=== PATIENT | male | born 1960 | race Caucasian/White ===

== ENCOUNTER 2016-03-10 14:17 | Emergency (ER) | payer OTHER ==
--- NOTE | 2016-03-10 15:27 | DIAGNOSTIC IMAGING REPORT ---
PROCEDURE: XR CHEST 2 VIEW INDICATION: CHEST PAIN TECHNIQUE: PA and lateral views. COMPARISON: None. FINDINGS: Lungs are clear. Heart and mediastinum are normal. Thorax is normal. IMPRESSION: 1. Negative chest.
--- NOTE | 2016-03-10 16:57 | DIAGNOSTIC IMAGING REPORT ---
PROCEDURE: CTA THORAX WITH CONTRAST INDICATION: CHEST PAIN, initial encounter TECHNIQUE: 84 ml of Isovue 370 was injected intravenously and axial images were obtained of the entire thorax with 3D sagittal and coronal MIP reconstructions. COMPARISON: Chest x-ray 03/10/2016 FINDINGS: No evidence of pulmonary emboli. Lungs are clear. No adenopathy or effusion. Normal thoracic aorta. Heart size is normal. Visualized upper abdomen is unremarkable. Moderate degenerative changes of the spine. IMPRESSION: 1. No evidence of pulmonary emboli, aortic dissection or aneurysm 2. Results discussed with Dr. Will
--- NOTE | 2016-03-10 17:05 | ED ORDER SUMMARY ---
..... 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 per protocol) (14:30 SBalde R.N.) Oxygen (2 L/min) (NC) (14:30 03/10/2016 SBalde R.N. per protocol) (15:08 Radha R.N.) Pulse oximeter (14:03/10/2016 SBalde R.N. per protocol) (14:30 SBalde R.N.) EKG - ER Stat (14:30 03/10/2016 SBalde R.N. per protocol) (14:33 RKaruga) Cardiac Panel Stat (14:30 03/10/2016 SBalde R.N. per protocol) (Ack 14:37 RKanauga) (14:45 SBalde R.N.) Chest 2V Urgent (14:43 03/10/2016 Brain HOLLEY) (Ack 14:46 Luz) (15:08 Radha R.N.) Amylase Urgent (14:43 03/10/2016 Brain HOLLEY) (Ack 14:46 Luz) (15:08 Radha R.N.) Lipase Urgent (14:43 03/10/2016 Brain HOLLEY) (Ack 14:46 Luz) (15:08 Radha R.N.) D-Dimer Urgent (14:43 03/10/2016 Brain HOLLEY) (Ack 14:46 Luz) (15:08 Radha R.N.) CTA Thorax w Cont (No) (normal) Urgent (15:35 03/10/2016 Brain HOLLEY) (Ack 15:38 Luz) (16:27 DDean R.N.) MEDICATION ORDERS: Aspirin PO 324 mg (NOW) (14:29 03/10/2016 SBalde R.N. per protocol) (14:30 Denaee R.N.) GI Cocktail WHITE PO 50 mL (NOW) (14:43 03/10/2016 Brain HOLLEY) (Ack 15:02 Radha R.N.) (15:08 Radha R.N.) IV FLUIDS: IV Saline Lock (14:30 03/10/2016 MIGUELalde R.N. per protocol) (14:45 Marilyn R.N.) Toradol IV 30 mg (NOW) (15:34 03/10/2016 Brain HOLLEY) (15:49 SBalde R.N.) ORDER SHEET NOTES: [Electronically signed by Shikha Solis R.N. (17:47 03/10/2016)] [Electronically signed by Jose Martin Will MD (20:16 03/10/2016)] [Electronically locked/signed by Shikha Solis R.N. (17:47 03/10/2016)]
--- NOTE | 2016-03-10 17:05 | ED NURSING NOTES ---
Clinical Report - Nurses [facility] [place] [address] 03/10/2016 14:19 [id number] TRI[facility] Triage time 14:21 Mar 10 2016. Acuity: LEVEL 2. Chief Complaint: CHEST PAIN and DISCOMFORT. Alert. No acute distress. --14:26 Sandra Campoverde R.N. 14:21 03/10/16. BP: 105/58. HR: 68. RR: 18. O2 saturation: 96%. Temp: 97.8 F. Pain level now 7/10. --14: Sandra Campoverde R.N. Weight: 111.1 kg stated. Height/Length: 72 inches Per Patient. BMI: 33.2. --14: Sandra Campoverde R.N. Medications CeleXA Oral. LaMICtal Oral (Tablet 150 mg) 250mg , twice daily. --14:23 Sandra Campoverde R.N. ZyPREXA Oral 2.5 mg, daily. --14:23 Sandra Campoverde R.N. Medication/allergy information source: the patient. --14: Sandra Campoverde R.N. Allergies Penicillins. --14: Sandra Campoverde R.N. History Arrived by private vehicle. Historian: patient. Accompanied by family and spouse. Primary physician (Rodney Craig). ( Left Pectoral Chest Pain 7/10, sudden onset, no activity. Was sitting at home waiting to go to work, started having Chest Pain, pain radiated down his left arm. Did not take any OTC at home. Pain is still 7/10 and left arm is still painful.). This started just prior to arrival. No sweating episodes or nausea. 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 SOCIAL HX: Never smoker. No alcohol use or drug use. No infectious disease exposure. FALL RISK ASSESSMENT: Fall risk assessment completed. No fall risk identified. NUTRITIONAL RISK ASSESSMENT: The nutritional risk assessment revealed no deficiencies. FUNCTIONAL ASSESSMENT: Functional assessment: no impairments noted. LEARNING NEEDS ASSESSMENT: The learning needs assessment revealed no barriers. SKIN INTEGRITY ASSESSMENT: Skin integrity risk assessment completed. No skin integrity risk identified. --14:26 Sandra Campoverde R.N. PROBLEMS: Immunizations. Seasonal allergic rhinitis. Asthma. Borderline personality disorder. Depression. Dental Pain. --14:25 Sandra Campoverde R.N. ADDITIONAL SURGERIES: Cholecystectomy. Knee Surgery. Sinus Surgery. --14:25 Sandra Campoverde R.N. Interventions ID band on patient. To room. --14:26 Sandra Campoverde R.N. PHYSICAL ASSESSMENT 15:03. GENERAL / NEURO / PSYCH: The patient is awake and alert, is oriented and cooperative and appears uncomfortable. He has good eye contact. RESPIRATORY: Respirations not labored. CVS: Cardiac rhythm: sinus rhythm. SKIN: Skin is warm and dry. --17:46 Shikha Solis R.N. NURSING PROGRESS NOTES site monitor, pulse oximeter and NIBP monitor placed on patient; ekg monitor tech- Lead II; monitor alarms on. Patient gowned. --14:28 Sandra Campoverde R.N. Patient identifiers checked. Side rails up x 1. Bed placed in lowest position. Brakes of bed on. --14:28 Sandra Campoverde R.N. ( ASA 324 mp chewable given in the ER.). --14:29 Sandra Campoverde R.N. 14:30 03/10/2016 Aspirin PO 324 mg given. Allergies verified and confirmed 5 rights. --14:30 Sandra Campoverde R.N. 14:45 03/10/2016 Site #1 started via IV in the right with an 18g angiocath; one attempt. Blood drawn: rainbow set. Labeled in the presence of the patient. Saline lock flushed with 10 mL saline. --14:45 Sandra Campoverde R.N. 15:03 03/10/2016 GI cocktail * PO 50 ml Maalox 30 ml Viscous Lidocaine 20 ml --15:08 Shikha Solis R.N. 15:11 03/10/16. The patient is resting quietly. Overall patient status is the same- he states feels the same. RESPIRATORY: No respiratory distress. CVS: Cardiac rhythm: sinus rhythm. SKIN: Skin is warm and dry. --15:11 Shikha Solis R.N. 15:08 03/10/16. BP: 113/66. HR: 62. RR: 22. O2 saturation: 98% on nasal cannula at 2 liters/minute. Pain level now: 08/14. --15:11 Shikha Solis R.N. 15:22 03/10/16. BP: 113/66. HR: 59. RR: 18. O2 saturation: 97%. Pain level now 08/14. --15:25 Sandra Campoverde R.N. Reassessment after medication administered (no change after med). He has had no adverse reaction. Overall patient status is the same- he states feels the same. --15:25 Sandra Campoverde R.N. 15:49 03/10/2016 Toradol IVP 30 mg given over 2 minute(s) via site #1. Allergies verified and confirmed 5 rights. IV patency established. IVP given by RN. --15:49 Sandra Campoverde R.N. Patient transported to CT by stretcher with tech. --16:17 Sandra Campoverde R.N. 16:28 03/10/16. Patient returned from CT by stretcher with tech. --16:28 Rachel Kim R.N. Patient returned from CT by stretcher with tech. (16:29 Mar 10 2016). --16:29 Sandra Campoverde R.N. site monitor and pulse oximeter placed on patient; monitor alarms on. --16:30 Sandra Campoverde R.N. 16:29 03/10/16. BP: 121/62. HR: 65. RR: 18. O2 saturation: 100%. Pain level now 06/14. --16:30 Sandra Campoverde R.N. 17:40. Reassessment after procedure and medication administered. He is calm and resting quietly. Overall patient status is improved- he states feels better. RESPIRATORY: No respiratory distress. CVS: Cardiac rhythm: sinus rhythm. SKIN: Skin is warm and dry. --17:45 Shikha Solis R.N. DISPOSITION / DISCHARGE Departure time: 1740. Condition at departure: stable. No learning barriers present. Discharge instructions provided and reviewed with the patient. Reviewed medication(s). Prescription(s) given to the patient. Work note given. Patient verbalized understanding. Written instructions provided in Macedonian. The patient was discharged home and accompanied by adult day care worker. He left the Emergency Department ambulatory and via private vehicle. Review Scheduling Coordinator driving. FALL RISK ASSESSMENT: Fall risk assessment completed. No fall risk identified. --17:44 Shikha Solis R.N. 17:43 03/10/16. BP: 114/62. HR: 60. RR: 20. O2 saturation: 98% on room air. Pain level now: 05/15. --17:44 Shikha Solis R.N. 17:40 03/10/2016 Site #1 removed upon discharge. Catheter intact. Bandaid applied. --17:44 Shikha Solis R.N. Locked/Released at 03/10/2016 17:47 by Shikha Solis R.N.
--- NOTE | 2016-03-10 17:05 | ED NURSING NOTES ---
Clinical Report - Nurses [facility] [place] [address] 03/10/2016 14:19 [id number] TRI[facility] Triage time 14:21 Mar 10 2016. Acuity: LEVEL 2. Chief Complaint: CHEST PAIN and DISCOMFORT. Alert. No acute distress. --14:26 Sandra Campoverde R.N. 14:21 03/10/16. BP: 105/58. HR: 68. RR: 18. O2 saturation: 96%. Temp: 97.8 F. Pain level now 7/10. --14: Sandra Campoverde R.N. Weight: 111.1 kg stated. Height/Length: 72 inches Per Patient. BMI: 33.2. --14: Sandra Campoverde R.N. Medications CeleXA Oral. LaMICtal Oral (Tablet 150 mg) 250mg , twice daily. --14:23 Sandra Campoverde R.N. ZyPREXA Oral 2.5 mg, daily. --14:23 Sandra Campoverde R.N. Medication/allergy information source: the patient. --14: Sandra Campoverde R.N. Allergies Penicillins. --14: Sandra Campoverde R.N. History Arrived by private vehicle. Historian: patient. Accompanied by family and spouse. Primary physician (Rodney Craig). ( Left Pectoral Chest Pain 7/10, sudden onset, no activity. Was sitting at home waiting to go to work, started having Chest Pain, pain radiated down his left arm. Did not take any OTC at home. Pain is still 7/10 and left arm is still painful.). This started just prior to arrival. No sweating episodes or nausea. 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 SOCIAL HX: Never smoker. No alcohol use or drug use. No infectious disease exposure. FALL RISK ASSESSMENT: Fall risk assessment completed. No fall risk identified. NUTRITIONAL RISK ASSESSMENT: The nutritional risk assessment revealed no deficiencies. FUNCTIONAL ASSESSMENT: Functional assessment: no impairments noted. LEARNING NEEDS ASSESSMENT: The learning needs assessment revealed no barriers. SKIN INTEGRITY ASSESSMENT: Skin integrity risk assessment completed. No skin integrity risk identified. --14:26 Sandra Campoverde R.N. PROBLEMS: Immunizations. Seasonal allergic rhinitis. Asthma. Borderline personality disorder. Depression. Dental Pain. --14:25 Sandra Campoverde R.N. ADDITIONAL SURGERIES: Cholecystectomy. Knee Surgery. Sinus Surgery. --14:25 Sandra Campoverde R.N. Interventions ID band on patient. To room. --14:26 Sandra Campoverde R.N. PHYSICAL ASSESSMENT 15:03. GENERAL / NEURO / PSYCH: The patient is awake and alert, is oriented and cooperative and appears uncomfortable. He has good eye contact. RESPIRATORY: Respirations not labored. CVS: Cardiac rhythm: sinus rhythm. SKIN: Skin is warm and dry. --17:46 Shikha Solis R.N. NURSING PROGRESS NOTES outpatient surgery rn, pulse oximeter and NIBP monitor placed on patient; director equipment- Lead II; monitor alarms on. Patient gowned. --14:28 Sandra Campoverde R.N. Patient identifiers checked. Side rails up x 1. Bed placed in lowest position. Brakes of bed on. --14:28 Sandra Campoverde R.N. ( ASA 324 mp chewable given in the ER.). --14:29 Sandra Campoverde R.N. 14:30 03/10/2016 Aspirin PO 324 mg given. Allergies verified and confirmed 5 rights. --14:30 Sandra Campoverde R.N. 14:45 03/10/2016 Site #1 started via IV in the right with an 18g angiocath; one attempt. Blood drawn: rainbow set. Labeled in the presence of the patient. Saline lock flushed with 10 mL saline. --14:45 Sandra Campoverde R.N. 15:03 03/10/2016 GI cocktail * PO 50 ml Maalox 30 ml Viscous Lidocaine 20 ml --15:08 Shikha Solis R.N. 15:11 03/10/16. The patient is resting quietly. Overall patient status is the same- he states feels the same. RESPIRATORY: No respiratory distress. CVS: Cardiac rhythm: sinus rhythm. SKIN: Skin is warm and dry. --15:11 Shikha Solis R.N. 15:08 03/10/16. BP: 113/66. HR: 62. RR: 22. O2 saturation: 98% on nasal cannula at 2 liters/minute. Pain level now: 08/14. --15:11 Shikha Solis R.N. 15:22 03/10/16. BP: 113/66. HR: 59. RR: 18. O2 saturation: 97%. Pain level now 08/14. --15:25 Sandra Campoverde R.N. Reassessment after medication administered (no change after med). He has had no adverse reaction. Overall patient status is the same- he states feels the same. --15:25 Sandra Campoverde R.N. 15:49 03/10/2016 Toradol IVP 30 mg given over 2 minute(s) via site #1. Allergies verified and confirmed 5 rights. IV patency established. IVP given by RN. --15:49 Sandra Campoverde R.N. Patient transported to CT by stretcher with tech. --16:17 Sandra Campoverde R.N. 16:28 03/10/16. Patient returned from CT by stretcher with tech. --16:28 Rachel Kim R.N. Patient returned from CT by stretcher with tech. (16:29 Mar 10 2016). --16:29 Sandra Campoverde R.N. outpatient surgery rn and pulse oximeter placed on patient; monitor alarms on. --16:30 Sandra Campoverde R.N. 16:29 03/10/16. BP: 121/62. HR: 65. RR: 18. O2 saturation: 100%. Pain level now 06/14. --16:30 Sandra Campoverde R.N. 17:40. Reassessment after procedure and medication administered. He is calm and resting quietly. Overall patient status is improved- he states feels better. RESPIRATORY: No respiratory distress. CVS: Cardiac rhythm: sinus rhythm. SKIN: Skin is warm and dry. --17:45 Shikha Solis R.N. DISPOSITION / DISCHARGE Departure time: 1740. Condition at departure: stable. No learning barriers present. Discharge instructions provided and reviewed with the patient. Reviewed medication(s). Prescription(s) given to the patient. Work note given. Patient verbalized understanding. Written instructions provided in [place]. The patient was discharged home and accompanied by cottage parent. He left the Emergency Department ambulatory and via private vehicle. Auto Phone Installer driving. FALL RISK ASSESSMENT: Fall risk assessment completed. No fall risk identified. --17:44 Shikha Solis R.N. 17:43 03/10/16. BP: 114/62. HR: 60. RR: 20. O2 saturation: 98% on room air. Pain level now: 05/15. --17:44 Shikha Solis R.N. 17:40 03/10/2016 Site #1 removed upon discharge. Catheter intact. Bandaid applied. --17:44 Shikha Solis R.N. Locked/Released at 03/10/2016 17:47 by Shikha Solis R.N.
--- NOTE | 2016-03-10 17:05 | ED CLINICAL REPORT ---
Clinical Report - Physicians/Mid Levels [facility] [address] [place] [address] 03/10/2016 14:19 [id number] Time Seen: 14:21 Mar 10 2016. Arrived- By private vehicle. Historian- patient. CPT: ER phys charges level 4 plus (#830843). EKG interpretation (#[id number]). HISTORY OF PRESENT ILLNESS Chief Complaint: CHEST PAIN. This started just prior to arrival ( Left Pectoral Chest Pain 7/10, sudden onset, no activity. Was sitting at home waiting to go to work, started having Chest Pain, pain radiated down his left arm. Did not take any OTC at home. Pain is still 7/10 and left arm is still painful.). This started just prior to arrival. No sweating episodes or nausea. Patient notes the pain started as a sharp pain in his left chest radiating to his left shoulder and arm. This slowly changed into a achy pressure pain. There is no dyspnea nausea vomiting sweats or presyncope. Did not notice anything that made the pain better or worse. Has not had this pain before. Denies any cardiac or pulmonary disease in the past. Denies reflux. Has not had to go on a treadmill in the past. His cardiac risk factors are negative other than he quit smoking 10 years ago. and is still present. Onset during rest. At its maximum, severity described as moderate. When seen in the E.D., severity described as moderate. Modifying factors. Not worsened by anything. Not relieved by anything. It is described as pressure, dull, sharp and "pain" and it is described as located in the left chest area and left shoulder and arm. No nausea, vomiting, difficulty breathing or diaphoresis. Similar symptoms previously: None. Recent medical care: Not recently seen/assessed. REVIEW OF SYSTEMS No fever, chills, cough, pedal edema or fainting episodes. No sore throat, abdominal pain, black stools, difficulty with urination or skin rash. No enlarged lymph nodes or joint pain. The patient has had moderate calf pain involving the left leg. All systems otherwise negative, except as recorded above. PAST HISTORY Additional Problems: Seasonal allergic rhinitis. Asthma. Borderline personality disorder. Depression.. Additional Surgeries: Cholecystectomy. Knee Surgery. Sinus Surgery.. Medications: ZyPREXA Oral 2.5 mg, daily. CeleXA Oral. LaMICtal Oral (Tablet 150 mg) 250mg , twice daily. Allergies: Penicillins. SOCIAL HISTORY Former smoker. ADDITIONAL NOTES The nursing notes have been reviewed. PHYSICAL EXAM Vital Signs: 03/10/2016 14:21 BP: 105/58. HR: 68. RR: 18. O2 saturation: 96%. Temp: 97.8 F. Appearance: Alert. Anxious. Patient in mild distress. Eyes: Pupils equal, round and reactive to light. Eyes normal inspection. ENT: Ears normal. Nose normal. Pharynx normal. Neck: Normal inspection. Neck supple. CVS: Normal heart rate and rhythm. Heart sounds normal. Pulses normal. Respiratory: No respiratory distress. Chest pain reproducible with palpation of the costal cartilage and anterior and lateral chest wall, with movement of the trunk and left arm and with deep breathing (Muscle testing reproduces the pain as does direct palpation.). Breath sounds normal. Abdomen: Soft. Moderate tenderness in the epigastric area. No guarding. Bowel sounds normal. No mass. Back: Normal external inspection. Skin: Skin warm. Normal skin color. No rash. Extremities: Mild left-sided calf tenderness (Skin changes of chronic venous insufficiency.). Extremities exhibit normal ROM. No lower extremity edema. Neuro: Oriented X 3. No motor deficit. No sensory deficit. Reflexes normal. LABS, X-RAYS, AND EKG EKG: No acute process. No acute ischemia. Normal sinus rhythm. Normal P waves. Normal HIRAM. Normal QRS complex. Normal axis. Normal ST and T waves. Prior EKG unavailable. The study has been interpreted contemporaneously. The study has been independently viewed by me. The EKG appears to be a good tracing. Chest CT: Lungs normal. Great vessels normal. Mediastinum normal. No fractures noted. No pulmonary embolism. Chest CT performed with contrast. The study was independently viewed by me, interpreted by the radiologist and discussed with the radiologist. Laboratory Tests: CBC w Diff: (FEI: 03/10/2016 14:45) ( MsgRcvd 03/10/2016 14:53) Final results Test Result Flag Units (Reference) WHITE BLOOD COUNT 7.0 K/uL (4.5-11.5) RED BLOOD COUNT 5.46 M/uL (4.50-5.90) HEMOGLOBIN 16.0 gm/dL (13.5-17.5) HEMATOCRIT 47.4 % (41.0-53.0) MEAN CELL VOLUME 87 fL (80-100) MEAN CORPUSCULAR HGB 29 pg (26-34) MEAN CORPUSCULAR HGB CONC 34 g/dL (31-37) RED CELL DISTRIBUTION WIDTH 13.6 % (11.6-14.8) PLATELET COUNT 225 K/uL (150-400) NEUTROPHIL % 80.6 H % (50-75) LYMPH % 13.0 L % (25-40) MONO % 5.4 % (3-14) EOSINOPHIL % 0.9 % (0-4) BASOPHIL % 0.1 % (0-2) [id number]: (FEI: 03/10/2016 14:45) ( [facility] 03/10/2016 15:02) Final results Test Result Flag Units (Reference) D-DIMER QUANTITATIVE 1.26 H ug/mLFEU (0.27-0.52) The primary value of this quantitative assay relates toits negative predictive value (i.e. exclusion) of pulmonaryembolism/deep vein thrombosis/DIC.Elevated levels of d-dimer may also occur with:, age, cancer, inflammation, liver disease,post-op, infection, hematoma, coronary disease, peripheralarteriopathy, bleeding disorders and thrombolytic treatment.Results should be correlated with other clinical andradiological data.Testing Methodology: Latex Immunoassay Lipase: (FEI: 03/10/2016 14:45) ( [facility] 03/10/2016 15:16) Final results Test Result Flag Units (Reference) LIPASE 137 U/L (73-393) AMYLASE 46 U/L (25-115) CHEM 13 PANEL: (FEI: 03/10/2016 14:45) ( [facility] 03/10/2016 15:32) Final results Test Result Flag Units (Reference) GLUCOSE 126 H mg/dL (70-110) BUN 17 mg/dL (7-18) CREATININE 0.9 mg/dL (0.6-1.3) Estimated GFR >60 mL/min Estimated GFR- >60 mL/min Note: Persistent reduction over 3 months in eGFR<60 mL/min/1.73 m2 defines CKD. Patients with eGFR values>=60 mL/min/1.73 m2 may also have CKD if evidence ofpersistent proteinuria. Additional information may be foundat [email or web address].org. SODIUM 143 mmol/L (136-145) POTASSIUM 4.3 mmol/L (3.5-5.1) CHLORIDE 107 mmol/L (98-107) CARBON DIOXIDE 26 mmol/L (21-32) CALCIUM 9.1 mg/dL (8.5-10.1) TOTAL PROTEIN 7.0 g/dL (6.4-8.2) ALBUMIN 4.0 g/dL (3.3-5.0) BILIRUBIN, TOTAL 0.3 mg/dL (0.0-1.0) ALKALINE PHOSPHATASE 82 U/L (46-116) AST (SGOT) 19 U/L (15-37) ALT (SGPT) 38 U/L (12-78) CPK 58 U/L (24-260) TROPONIN I <0.05 L ng/mL (0.00-1.5) TROPONIN REFERENCE RANGE:<0.1 NEGATIVE0.1-1.5 INDETERMINANT>1.5 POSITIVE MAGNESIUM 1.9 mg/dL (1.8-2.4) . PROGRESS AND PROCEDURES Course of Care: IV NS White GI cocktail. No change. Toradol 30 mg IV with moderate improvement. The patient has reproducible chest wall pain on exam. He also has epigastric pain to palpation consistent with gastritis or esophagitis. Patient/family counseled. Disposition: Discharged. Condition: stable and improved. CLINICAL IMPRESSION Chest wall pain .12 lead EKG performed. Acute esophagitis associated with gastro-esophageal reflux disease (GERD). INSTRUCTIONS Apply moist heat for 15-20 minutes three times a day for five days until better. No strenuous activity. Rest. Do not work today, for one day. Avoid stimulants (such as cigarettes, coffee, cold medicines, sinus medicines, street drugs) until better. Avoid alcohol and NSAIDS. Examples of NSAIDS include aspirin, ibuprofen (Advil) and naproxen (Aleve). Avoid spicy foods. Other diet: Avoid caffeine. Warnings: Further evaluation is necessary. GENERAL WARNINGS: Return or contact your physician immediately if your condition worsens or changes unexpectedly, if not improving as expected, or if other problems arise. Your Current Medications: CONTINUE TAKING THE FOLLOWING MEDICATIONS: CeleXA Oral. LaMICtal Oral : Tablet 150 mg, 250mg twice daily. ZyPREXA Oral : 2.5 mg daily. Prescription Medications: Carafate four times daily (30 minutes before meals and at bedtime). Dispense forty (40). No refills. Prilosec 40 mg capsules: take 1 capsule orally every day for 10 days. Dispense ten (10). No refill. Substitution is permissible. Flexeril 10 mg: Take 1 orally every 8 hours as needed for muscle spasm. Dispense twenty (20). No refills. Substitution is permissible. Hydrocodone/APAP 5mg/325mg: take 1 to 2 orally every 6 hours as needed for pain. Dispense fifteen (15). No refills. Follow-up: Follow up with your doctor in one week. Call for the next available appointment. Understanding of the discharge instructions verbalized by patient and family. Discharge instructions reviewed with and understanding was verbalized by spouse. (Electronically signed by Jose Martin Will MD 03/10/2016 20:16)
--- NOTE | 2016-03-10 17:05 | ED ORDER SUMMARY ---
..... Patient: DAVID SMITH OrderSheet [facility] VisitID: [id number] [place] [address] 55y, M Registration Date/Time: 03/10/2016 ORDER SHEET Weight: 111.1 kg (stated) Allergies: Penicillins GENERAL ORDERS: In Tube Conversion Technician (Continuous) (14:29 03/10/2016 SBalde R.N. per protocol) (14:30 SBalde R.N.) Oxygen (2 L/min) (NC) (14:30 03/10/2016 SBalde R.N. per protocol) (15:08 Radha R.N.) Pulse oximeter (14:03/10/2016 SBalde R.N. per protocol) (14:30 SBalde R.N.) EKG - ER Stat (14:30 03/10/2016 SBalde R.N. per protocol) (14:33 RKaruga) Cardiac Panel Stat (14:30 03/10/2016 SBalde R.N. per protocol) (Ack 14:37 RKanauga) (14:45 SBalde R.N.) Chest 2V Urgent (14:43 03/10/2016 Brain HOLLEY) (Ack 14:46 Luz) (15:08 Radha R.N.) Amylase Urgent (14:43 03/10/2016 Brain HOLLEY) (Ack 14:46 Luz) (15:08 Radha R.N.) Lipase Urgent (14:43 03/10/2016 Brain HOLLEY) (Ack 14:46 Luz) (15:08 Radha R.N.) D-Dimer Urgent (14:43 03/10/2016 Brain HOLLEY) (Ack 14:46 Luz) (15:08 Radha R.N.) CTA Thorax w Cont (No) (normal) Urgent (15:35 03/10/2016 Brain HOLLEY) (Ack 15:38 Luz) (16:27 DDean R.N.) MEDICATION ORDERS: Aspirin PO 324 mg (NOW) (14:29 03/10/2016 SBalde R.N. per protocol) (14:30 Denaee R.N.) GI Cocktail WHITE PO 50 mL (NOW) (14:43 03/10/2016 Brain HOLLEY) (Ack 15:02 Radha R.N.) (15:08 Radha R.N.) IV FLUIDS: IV Saline Lock (14:30 03/10/2016 MIGUELalde R.N. per protocol) (14:45 Marilyn R.N.) Toradol IV 30 mg (NOW) (15:34 03/10/2016 Brain HOLLEY) (15:49 SBalde R.N.) ORDER SHEET NOTES: [Electronically signed by Shikha Solis R.N. (17:47 03/10/2016)] [Electronically signed by Jose Martin Will MD (20:16 03/10/2016)] [Electronically locked/signed by Shikha Solis R.N. (17:47 03/10/2016)]
--- NOTE | 2016-03-10 20:16 | ED MED RECONCILIATION SUMMARY ---
Patient: DAVID SMITH Medication Reconciliation Report [facility] VisitID: [id number] [address] [place] [address] 55y, M Registration Date/Time: 03/10/2016 Weight: 111.1 kg Height/Length: 72 in. BMI: 33.2 ALLERGIES: Penicillins The patient's Home Medications are listed below: CONTINUE TAKING THE FOLLOWING MEDICATIONS: CeleXA Oral LaMICtal Oral (150 mg) 250mg , twice daily ZyPREXA Oral 2.5 mg, daily The source(s) of the original Home Medication information: patient The following Medications were given to the patient in the Emergency Department: Aspirin [PO] PO 324 mg, administered: 03/10/2016 2:30:00 PM GI cocktail PO 50 ml, administered: 03/10/2016 3:03:00 PM Toradol [IVP] IVP 30 mg, administered: 03/10/2016 3:49:00 PM The following Medications were prescribed to the patient: Carafate four times daily (30 minutes before meals and at bedtime). Dispense forty (40). No refills. -- Jose Martin Will MD Prilosec 40 mg capsules: take 1 capsule orally every day for 10 days. Dispense ten (10). No refill. Substitution is permissible. -- Jose Martin Will MD Flexeril 10 mg: Take 1 orally every 8 hours as needed for muscle spasm. Dispense twenty (20). No refills. Substitution is permissible. -- Jose Martin Will MD Hydrocodone/APAP 5mg/325mg: take 1 to 2 orally every 6 hours as needed for pain. Dispense fifteen (15). No refills. -- Jose Martin Will MD
--- NOTE | 2016-03-10 20:16 | ED DISCHARGE INSTRUCTIONS ---
Patient: DAVID SMITH General Instructions [facility] VisitID: [id number] [place] [address] 55y, M Registration Date/Time: 03/10/2016 Chest wall pain .12 lead EKG performed. Acute esophagitis associated with gastro-esophageal reflux disease (GERD). INSTRUCTIONS Apply moist heat for 15-20 minutes three times a day for five days until better. No strenuous activity. Rest. Do not work today, for one day. Avoid stimulants (such as cigarettes, coffee, cold medicines, sinus medicines, street drugs) until better. Avoid alcohol and NSAIDS. Examples of NSAIDS include aspirin, ibuprofen (Advil) and naproxen (Aleve). Avoid spicy foods. Other diet: Avoid caffeine. Warnings: Further evaluation is necessary. GENERAL WARNINGS: Return or contact your physician immediately if your condition worsens or changes unexpectedly, if not improving as expected, or if other problems arise. Your Current Medications: CONTINUE TAKING THE FOLLOWING MEDICATIONS: CeleXA Oral. LaMICtal Oral : Tablet 150 mg, 250mg twice daily. ZyPREXA Oral : 2.5 mg daily. Prescription Medications: Carafate four times daily (30 minutes before meals and at bedtime). Dispense forty (40). No refills. Prilosec 40 mg capsules: take 1 capsule orally every day for 10 days. Dispense ten (10). No refill. Substitution is permissible. Flexeril 10 mg: Take 1 orally every 8 hours as needed for muscle spasm. Dispense twenty (20). No refills. Substitution is permissible. Hydrocodone/APAP 5mg/325mg: take 1 to 2 orally every 6 hours as needed for pain. Dispense fifteen (15). No refills. Follow-up: Follow up with your doctor in one week. Call for the next available appointment. Understanding of the discharge instructions verbalized by patient and family. Discharge instructions reviewed with and understanding was verbalized by spouse. ADDITIONAL INFORMATION Chest Strain A strain of the chest is due to stretching and tearing of the muscle fibers between the ribs. This may occur as a result of severe coughing, strenuous lifting or twisting injuries of the upper back. This usually causes increased pain with movement or deep breathing. This may take a few days to a few weeks to heal. Home Care: Rest. Avoid heavy lifting or strenuous exertion. Avoid any activity that causes pain. If you have a severe cough, use a cough syrup such as Robitussin DM (containing dextromethorphan) unless another cough medicine was prescribed. You may use acetaminophen (Tylenol) or ibuprofen (Motrin, Advil) to control pain, unless another medicine was prescribed. [ NOTE: If you have chronic liver or kidney disease or ever had a stomach ulcer or GI bleeding, talk with your doctor before using these medicines.] Follow Up with your doctor as directed. Get Prompt Medical Attention if any of the following occur: A change in the type of pain: if it feels different, becomes more severe, lasts longer, or begins to spread into your shoulder, arm, neck, jaw or back Shortness of breath or increased pain with breathing Cough with dark colored sputum (phlegm) or blood Weakness, dizziness, or fainting Fever of 100.4F (38C) or higher, or as directed by your healthcare provider GERD (Adult) The esophagus is a tube that carries food from the mouth to the stomach. A valve at the lower end of the esophagus prevents stomach acid from flowing upward. If this valve does not work properly, acid from the stomach enters the esophagus. If this occurs over and over, the acid will injure the lining of the esophagus. This condition is called GERD (gastroesophageal reflux disease) or acid reflux. When stomach acid flows upward into the esophagus, it causes burning, pressure or sharp pain in the upper abdomen or mid to lower chest. The pain can spread to the neck, back, or shoulder, similar to heart pain (angina). There may be belching, an acid taste in the back of the throat, chronic cough, or sore throat or hoarseness. GERD symptoms often occur during the day after a big meal, but it can also occur at night when lying down. Smoking,as well as drinking alcohol, increases the risk of GERD. GERD is a chronic condition. Once it begins, it is often lifelong. Treatment includes changes in eating habits and the use of acid graciela medications to decrease the amount of acid in the stomach. Symptoms often improve with treatment, but if treatment is stopped, the symptoms usually return after a few months. So most persons with GERD will need to continue treatment. Home Care: Take the prescribed acid graciela medication for the full course of treatment even if you begin to feel better sooner. This medication can take up to several days to fully control your symptoms. If you cant afford the prescribed medication, you can try [id number] acid blockers, such as Pepcid AC, Tagamet, Zantac, or Aciphex. If these do not relieve your symptoms, a stronger acid-graciela can be tried, such as Prilosec OTC. You can use antacids, such as Tums, Rolaids, Mylanta, or Maalox, for pain. This will be useful the first few days after starting acid blockers when the blockers havent started working yet. Follow the directions on the label. Liquid antacids may work better than tablets. Note that antacids can interfere with absorption of certain medications. Specifically, do not take Tagamet (cimetidine), Zantac (ranitidine), or Carafate (sucralfate) within 1 hour of taking an antacid. Talk with your pharmacist if you have any questions. Limit or avoid fatty, fried, and spicy foods, as well as coffee, chocolate, mint, and foods with high acid content such as tomatoes and citrus fruit and juices (orange, grapefruit, lemon). Avoid alcohol and smoking. Dont eat large meals, especially at night. Frequent, smaller meals are best. Do not lie down right after eating. And dont eat anything 3 hours before going to bed. If you are overweight, losing weight will reduce symptoms. Women should not wear corsets or girdles because this increases pressure on the stomach and worsens reflux. If your symptoms occur during sleep, use a foam wedge to elevate your upper body (not just your head.) Or, place 4" blocks under the head of your bed. Follow Up with your doctor or as advised by our staff. Further testing may be needed. If you do not begin to improve over the next 4 days, contact your doctor. If you had an x-ray, CT scan, or ECG (electrocardiogram), it will be reviewed by a specialist. Youll be notified of any new findings that affect your care. Get Prompt Medical Attention if any of the following occur: Stomach pain gets worse or moves to the lower right abdomen (appendix area) Chest pain appears or gets worse, or spreads to the back, neck, shoulder, or arm Frequent vomiting (cant keep down liquids) Blood in the stool or vomit (red or black in color) Feeling weak or dizzy, fainting, or trouble breathing Fever of 100.4F (38C) or higher, or as directed by your healthcare provider [place] Diet A bland diet is used for patients with an upset stomach. It consists of foods that are mild and easy to digest. It is better to eat small frequent meals rather than three large meals a day. BEVERAGES OK: Fruit juices, non-caffeinated teas and coffee, non-carbonated penaloza AVOID: Carbonated beverage, caffeinated tea and coffee, all alcoholic beverages BREAD OK: Refined white, wheat or rye bread, nelida or soda crackers, Zoya toast, plain rolls, bagels AVOID: Whole-grain bread CEREAL OK: Refined cereals: cooked or ready to eat AVOID: Whole grain cereals and granola, or those containing bran, seeds or nuts DESSERTS OK: Peanut butter and all others except those to "avoid" AVOID: Chocolate, cocoa, coconut, popcorn, nuts, seeds, jam, marmalade FRUITS OK: Canned, cooked, frozen or fresh fruits without seeds or tough skin AVOID: Olives, skin and seeds of fruit MEATS OK: All fresh or preserved meat, fish and fowl AVOID: Any that are prepared with those spices to "avoid" CHEESE & EGGS OK: Eggs, cottage cheese, cream cheese, other cheeses AVOID: All cheeses made with those spices to "avoid" POTATOES & PASTA OK: Potato, rice, macaroni, noodles, spaghetti AVOID: None SOUPS OK: All soups without heavy seasoning AVOID: Soups made with those spices to "avoid" VEGETABLES OK: Canned, cooked, fresh or frozen mildly flavored vegetables without seeds, skins or coarse fiber AVOID: Vegetables prepared with those spices to "avoid"; skin and seeds of vegetables and those with coarse fiber SPICES OK: Salt, lemon and [place] juice, vinegar, all extracts, jamaal, cinnamon, thyme, mace, allspice, paprika AVOID: Inlet powder, cloves, pepper, seed spices, garlic, gravy pickles, highly seasoned salad dressings Sucralfate Oral tablet What is this medicine? SUCRALFATE (ARCHANA jermaine fate) helps to treat ulcers of the intestine. How should I use this medicine? Take this medicine by mouth with a glass of water. Follow the directions on the prescription label. This medicine works best if you take it on an empty stomach, 1 hour before meals. Take your doses at regular intervals. Do not take your medicine more often than directed. Do not stop taking except on your doctor's advice. Talk to your tear down worker regarding the use of this medicine in children. Special care may be needed. What side effects may I notice from receiving this medicine? Side effects that you should report to your doctor or health family day carer as soon as possible: allergic reactions like skin rash, itching or hives, swelling of the face, lips, or tongue difficulty breathing Side effects that usually do not require medical attention (report to your doctor or health family day carer if they continue or are bothersome): back pain constipation drowsy, dizzy dry mouth headache stomach upset, gas trouble sleeping What may interact with this medicine? antacid cimetidine digoxin ketoconazole phenytoin quinidine ranitidine some antibiotics like ciprofloxacin, norfloxacin, and ofloxacin theophylline thyroid hormones warfarin What if I miss a dose? If you miss a dose, take it as soon as you can. If it is almost time for your next dose, take only that dose. Do not take double or extra doses. Where should I keep my medicine? Keep out of the reach of children. Store at room temperature between 15 and 30 degrees C (59 and 86 degrees F). Keep container tightly closed. Throw away any unused medicine after the expiration date. What should I tell my health care provider before I take this medicine? They need to know if you have any of these conditions: kidney disease an unusual or allergic reaction to sucralfate, other medicines, foods, dyes, or preservatives or trying to get breast-feeding What should I watch for while using this medicine? Visit your doctor or health family day carer for regular check ups. Let your doctor know if your symptoms do not improve or if you feel worse. Antacids should not be taken within one half hour before or after this medicine. Omeprazole Magnesium Gastro-resistant tablet What is this medicine? OMEPRAZOLE (oh ME pray zol) prevents the production of acid in the stomach. It is used to treat the symptoms of heartburn. You can buy this medicine without a prescription. This product is not for long-term use, unless otherwise directed by your doctor or health family day carer. How should I use this medicine? Take this medicine by mouth. Follow the directions on the product label. If you are taking this medicine without a prescription, take one tablet every day. Do not use for longer than 14 days or repeat a course of treatment more often than every 4 months unless directed by a doctor or healthcare professional. Take your dose at regular intervals every 24 hours. Swallow the tablet whole with a drink of water. Do not crush, break or chew. This medicine works best if taken on an empty stomach 30 minutes before breakfast. If you are using this medicine with the prescription of your doctor or healthcare professional, follow the directions you were given. Do not take your medicine more often than directed. Talk to your tear down worker regarding the use of this medicine in children. Special care may be needed. What side effects may I notice from receiving this medicine? Side effects that you should report to your doctor or health family day carer as soon as possible: allergic reactions like skin rash, itching or hives, swelling of the face, lips, or tongue bone, muscle or joint pain breathing problems chest pain or chest tightness dark yellow or brown urine diarrhea dizziness fast, irregular heartbeat feeling faint or lightheaded fever or sore throat muscle spasm palpitations redness, blistering, peeling or loosening of the skin, including inside the mouth seizures tremors unusual bleeding or bruising unusually weak or tired yellowing of the eyes or skin Side effects that usually do not require medical attention (Report these to your doctor or health family day carer if they continue or are bothersome.): constipation dry mouth headache loose stools nausea What may interact with this medicine? Do not take this medicine with any of the following medications: atazanavir clopidogrel nelfinavir This medicine may also interact with the following medications: ampicillin certain medicines for anxiety or sleep certain medicines that treat or prevent blood clots like warfarin cyclosporine diazepam digoxin disulfiram iron salts phenytoin prescription medicine for fungal or yeast infection like itraconazole, ketoconazole, voriconazole saquinavir tacrolimus What if I miss a dose? If you miss a dose, take it as soon as you can. If it is almost time for your next dose, take only that dose. Do not take double or extra doses. Where should I keep my medicine? Keep out of the reach of children. Store at room temperature between 20 and 25 degrees C (68 and 77 degrees F). Protect from light and moisture. Throw away any unused medicine after the expiration date. What should I tell my health care provider before I take this medicine? They need to know if you have any of these conditions: black or bloody stools chest pain difficulty swallowing have had heartburn for over 3 months have heartburn with dizziness, lightheadedness or sweating liver disease stomach pain unexplained weight loss vomiting with blood wheezing an unusual or allergic reaction to omeprazole, other medicines, foods, dyes, or preservatives or trying to get breast-feeding What should I watch for while using this medicine? It can take several days before your heartburn gets better. Check with your doctor or health family day carer if your condition does not start to get better, or if it gets worse. Do not treat diarrhea with over the counter products. Contact your doctor if you have diarrhea that lasts more than 2 days or if it is severe and watery. Do not treat yourself for heartburn with this medicine for more than 14 days in a row. You should only use this medicine for a 2-week treatment period once every 4 months. If your symptoms return shortly after your therapy is complete, or within the 4 month time frame, call your doctor or health family day carer. You have been given the following additional information: Chest Wall Strain GERD (Adult) Diet, [place] (Adult) Sucralfate Oral tablet Omeprazole Magnesium Gastro-resistant tablet No strenuous activity. Rest. Do not work today, for one day. (Electronically signed by Jose Martin Will MD 03/10/2016 20:16)
--- NOTE | 2016-03-10 20:16 | ED MAR SUMMARY ---
..... Medication Administration Record [facility] [address] [place] [address] Patient: DAVID SMITH Visit ID: [id number] 55y, M Weight: 111.1 kg Height/Length: 72 in BMI: 33.2 ALLERGIES: Penicillins Given 14:30 03/10/2016 Sandra Campoverde R.N. Medication Administered: ASPIRIN [PO], Dose: 324 mg PO. Medication Ordered: Aspirin PO 324 mg (NOW). Given 15:03 03/10/2016 Shikha Solis R.N. Medication Administered: GI cocktail *, Dose: 50 ml * PO. Medication Ordered: GI Cocktail WHITE PO 50 mL (NOW). Given 15:49 03/10/2016 Sandra Campoverde R.N. Medication Administered: TORADOL [IVP], Dose: 30 mg IVP over 2 minute(s), Site: #1 right. Medication Ordered: Toradol IV 30 mg (NOW).
--- NOTE | 2016-03-10 20:16 | ED MAR SUMMARY ---
..... Medication Administration Record [facility] [address] [place] [address] Patient: DAVID SMITH Visit ID: [id number] 55y, M Weight: 111.1 kg Height/Length: 72 in BMI: 33.2 ALLERGIES: Penicillins Given 14:30 03/10/2016 Sandra Campoverde R.N. Medication Administered: ASPIRIN [PO], Dose: 324 mg PO. Medication Ordered: Aspirin PO 324 mg (NOW). Given 15:03 03/10/2016 Shikha Solis R.N. Medication Administered: GI cocktail *, Dose: 50 ml * PO. Medication Ordered: GI Cocktail WHITE PO 50 mL (NOW). Given 15:49 03/10/2016 Sandra Campoverde R.N. Medication Administered: TORADOL [IVP], Dose: 30 mg IVP over 2 minute(s), Site: #1 right. Medication Ordered: Toradol IV 30 mg (NOW).
--- NOTE | 2016-03-10 20:16 | ED DISCHARGE INSTRUCTIONS ---
Patient: DAVID SMITH General Instructions [facility] VisitID: [id number] [place] [address] 55y, M Registration Date/Time: 03/10/2016 Chest wall pain .12 lead EKG performed. Acute esophagitis associated with gastro-esophageal reflux disease (GERD). INSTRUCTIONS Apply moist heat for 15-20 minutes three times a day for five days until better. No strenuous activity. Rest. Do not work today, for one day. Avoid stimulants (such as cigarettes, coffee, cold medicines, sinus medicines, street drugs) until better. Avoid alcohol and NSAIDS. Examples of NSAIDS include aspirin, ibuprofen (Advil) and naproxen (Aleve). Avoid spicy foods. Other diet: Avoid caffeine. Warnings: Further evaluation is necessary. GENERAL WARNINGS: Return or contact your physician immediately if your condition worsens or changes unexpectedly, if not improving as expected, or if other problems arise. Your Current Medications: CONTINUE TAKING THE FOLLOWING MEDICATIONS: CeleXA Oral. LaMICtal Oral : Tablet 150 mg, 250mg twice daily. ZyPREXA Oral : 2.5 mg daily. Prescription Medications: Carafate four times daily (30 minutes before meals and at bedtime). Dispense forty (40). No refills. Prilosec 40 mg capsules: take 1 capsule orally every day for 10 days. Dispense ten (10). No refill. Substitution is permissible. Flexeril 10 mg: Take 1 orally every 8 hours as needed for muscle spasm. Dispense twenty (20). No refills. Substitution is permissible. Hydrocodone/APAP 5mg/325mg: take 1 to 2 orally every 6 hours as needed for pain. Dispense fifteen (15). No refills. Follow-up: Follow up with your doctor in one week. Call for the next available appointment. Understanding of the discharge instructions verbalized by patient and family. Discharge instructions reviewed with and understanding was verbalized by spouse. ADDITIONAL INFORMATION Chest Strain A strain of the chest is due to stretching and tearing of the muscle fibers between the ribs. This may occur as a result of severe coughing, strenuous lifting or twisting injuries of the upper back. This usually causes increased pain with movement or deep breathing. This may take a few days to a few weeks to heal. Home Care: Rest. Avoid heavy lifting or strenuous exertion. Avoid any activity that causes pain. If you have a severe cough, use a cough syrup such as Robitussin DM (containing dextromethorphan) unless another cough medicine was prescribed. You may use acetaminophen (Tylenol) or ibuprofen (Motrin, Advil) to control pain, unless another medicine was prescribed. [ NOTE: If you have chronic liver or kidney disease or ever had a stomach ulcer or GI bleeding, talk with your doctor before using these medicines.] Follow Up with your doctor as directed. Get Prompt Medical Attention if any of the following occur: A change in the type of pain: if it feels different, becomes more severe, lasts longer, or begins to spread into your shoulder, arm, neck, jaw or back Shortness of breath or increased pain with breathing Cough with dark colored sputum (phlegm) or blood Weakness, dizziness, or fainting Fever of 100.4F (38C) or higher, or as directed by your healthcare provider GERD (Adult) The esophagus is a tube that carries food from the mouth to the stomach. A valve at the lower end of the esophagus prevents stomach acid from flowing upward. If this valve does not work properly, acid from the stomach enters the esophagus. If this occurs over and over, the acid will injure the lining of the esophagus. This condition is called GERD (gastroesophageal reflux disease) or acid reflux. When stomach acid flows upward into the esophagus, it causes burning, pressure or sharp pain in the upper abdomen or mid to lower chest. The pain can spread to the neck, back, or shoulder, similar to heart pain (angina). There may be belching, an acid taste in the back of the throat, chronic cough, or sore throat or hoarseness. GERD symptoms often occur during the day after a big meal, but it can also occur at night when lying down. Smoking,as well as drinking alcohol, increases the risk of GERD. GERD is a chronic condition. Once it begins, it is often lifelong. Treatment includes changes in eating habits and the use of acid graciela medications to decrease the amount of acid in the stomach. Symptoms often improve with treatment, but if treatment is stopped, the symptoms usually return after a few months. So most persons with GERD will need to continue treatment. Home Care: Take the prescribed acid graciela medication for the full course of treatment even if you begin to feel better sooner. This medication can take up to several days to fully control your symptoms. If you cant afford the prescribed medication, you can try ieon-bjr-dgwzqoa acid blockers, such as Pepcid AC, Tagamet, Zantac, or Aciphex. If these do not relieve your symptoms, a stronger acid-graciela can be tried, such as Prilosec OTC. You can use antacids, such as Tums, Rolaids, Mylanta, or Maalox, for pain. This will be useful the first few days after starting acid blockers when the blockers havent started working yet. Follow the directions on the label. Liquid antacids may work better than tablets. Note that antacids can interfere with absorption of certain medications. Specifically, do not take Tagamet (cimetidine), Zantac (ranitidine), or Carafate (sucralfate) within 1 hour of taking an antacid. Talk with your pharmacist if you have any questions. Limit or avoid fatty, fried, and spicy foods, as well as coffee, chocolate, mint, and foods with high acid content such as tomatoes and citrus fruit and juices (orange, grapefruit, lemon). Avoid alcohol and smoking. Dont eat large meals, especially at night. Frequent, smaller meals are best. Do not lie down right after eating. And dont eat anything 3 hours before going to bed. If you are overweight, losing weight will reduce symptoms. Women should not wear corsets or girdles because this increases pressure on the stomach and worsens reflux. If your symptoms occur during sleep, use a foam wedge to elevate your upper body (not just your head.) Or, place 4" blocks under the head of your bed. Follow Up with your doctor or as advised by our staff. Further testing may be needed. If you do not begin to improve over the next 4 days, contact your doctor. If you had an x-ray, CT scan, or ECG (electrocardiogram), it will be reviewed by a specialist. Youll be notified of any new findings that affect your care. Get Prompt Medical Attention if any of the following occur: Stomach pain gets worse or moves to the lower right abdomen (appendix area) Chest pain appears or gets worse, or spreads to the back, neck, shoulder, or arm Frequent vomiting (cant keep down liquids) Blood in the stool or vomit (red or black in color) Feeling weak or dizzy, fainting, or trouble breathing Fever of 100.4F (38C) or higher, or as directed by your healthcare provider [place] Diet A bland diet is used for patients with an upset stomach. It consists of foods that are mild and easy to digest. It is better to eat small frequent meals rather than three large meals a day. BEVERAGES OK: Fruit juices, non-caffeinated teas and coffee, non-carbonated penaloza AVOID: Carbonated beverage, caffeinated tea and coffee, all alcoholic beverages BREAD OK: Refined white, wheat or rye bread, nelida or soda crackers, Zoya toast, plain rolls, bagels AVOID: Whole-grain bread CEREAL OK: Refined cereals: cooked or ready to eat AVOID: Whole grain cereals and granola, or those containing bran, seeds or nuts DESSERTS OK: Peanut butter and all others except those to "avoid" AVOID: Chocolate, cocoa, coconut, popcorn, nuts, seeds, jam, marmalade FRUITS OK: Canned, cooked, frozen or fresh fruits without seeds or tough skin AVOID: Olives, skin and seeds of fruit MEATS OK: All fresh or preserved meat, fish and fowl AVOID: Any that are prepared with those spices to "avoid" CHEESE & EGGS OK: Eggs, cottage cheese, cream cheese, other cheeses AVOID: All cheeses made with those spices to "avoid" POTATOES & PASTA OK: Potato, rice, macaroni, noodles, spaghetti AVOID: None SOUPS OK: All soups without heavy seasoning AVOID: Soups made with those spices to "avoid" VEGETABLES OK: Canned, cooked, fresh or frozen mildly flavored vegetables without seeds, skins or coarse fiber AVOID: Vegetables prepared with those spices to "avoid"; skin and seeds of vegetables and those with coarse fiber SPICES OK: Salt, lemon and [place]k juice, vinegar, all extracts, jamaal, cinnamon, thyme, mace, allspice, paprika AVOID: Stryker powder, cloves, pepper, seed spices, garlic, gravy pickles, highly seasoned salad dressings Sucralfate Oral tablet What is this medicine? SUCRALFATE (ARCHANA jermaine fate) helps to treat ulcers of the intestine. How should I use this medicine? Take this medicine by mouth with a glass of water. Follow the directions on the prescription label. This medicine works best if you take it on an empty stomach, 1 hour before meals. Take your doses at regular intervals. Do not take your medicine more often than directed. Do not stop taking except on your doctor's advice. Talk to your block stacker regarding the use of this medicine in children. Special care may be needed. What side effects may I notice from receiving this medicine? Side effects that you should report to your doctor or health childcare administrator as soon as possible: allergic reactions like skin rash, itching or hives, swelling of the face, lips, or tongue difficulty breathing Side effects that usually do not require medical attention (report to your doctor or health childcare administrator if they continue or are bothersome): back pain constipation drowsy, dizzy dry mouth headache stomach upset, gas trouble sleeping What may interact with this medicine? antacid cimetidine digoxin ketoconazole phenytoin quinidine ranitidine some antibiotics like ciprofloxacin, norfloxacin, and ofloxacin theophylline thyroid hormones warfarin What if I miss a dose? If you miss a dose, take it as soon as you can. If it is almost time for your next dose, take only that dose. Do not take double or extra doses. Where should I keep my medicine? Keep out of the reach of children. Store at room temperature between 15 and 30 degrees C (59 and 86 degrees F). Keep container tightly closed. Throw away any unused medicine after the expiration date. What should I tell my health care provider before I take this medicine? They need to know if you have any of these conditions: kidney disease an unusual or allergic reaction to sucralfate, other medicines, foods, dyes, or preservatives or trying to get breast-feeding What should I watch for while using this medicine? Visit your doctor or health childcare administrator for regular check ups. Let your doctor know if your symptoms do not improve or if you feel worse. Antacids should not be taken within one half hour before or after this medicine. Omeprazole Magnesium Gastro-resistant tablet What is this medicine? OMEPRAZOLE (oh ME pray zol) prevents the production of acid in the stomach. It is used to treat the symptoms of heartburn. You can buy this medicine without a prescription. This product is not for long-term use, unless otherwise directed by your doctor or health childcare administrator. How should I use this medicine? Take this medicine by mouth. Follow the directions on the product label. If you are taking this medicine without a prescription, take one tablet every day. Do not use for longer than 14 days or repeat a course of treatment more often than every 4 months unless directed by a doctor or healthcare professional. Take your dose at regular intervals every 24 hours. Swallow the tablet whole with a drink of water. Do not crush, break or chew. This medicine works best if taken on an empty stomach 30 minutes before breakfast. If you are using this medicine with the prescription of your doctor or healthcare professional, follow the directions you were given. Do not take your medicine more often than directed. Talk to your block stacker regarding the use of this medicine in children. Special care may be needed. What side effects may I notice from receiving this medicine? Side effects that you should report to your doctor or health childcare administrator as soon as possible: allergic reactions like skin rash, itching or hives, swelling of the face, lips, or tongue bone, muscle or joint pain breathing problems chest pain or chest tightness dark yellow or brown urine diarrhea dizziness fast, irregular heartbeat feeling faint or lightheaded fever or sore throat muscle spasm palpitations redness, blistering, peeling or loosening of the skin, including inside the mouth seizures tremors unusual bleeding or bruising unusually weak or tired yellowing of the eyes or skin Side effects that usually do not require medical attention (Report these to your doctor or health childcare administrator if they continue or are bothersome.): constipation dry mouth headache loose stools nausea What may interact with this medicine? Do not take this medicine with any of the following medications: atazanavir clopidogrel nelfinavir This medicine may also interact with the following medications: ampicillin certain medicines for anxiety or sleep certain medicines that treat or prevent blood clots like warfarin cyclosporine diazepam digoxin disulfiram iron salts phenytoin prescription medicine for fungal or yeast infection like itraconazole, ketoconazole, voriconazole saquinavir tacrolimus What if I miss a dose? If you miss a dose, take it as soon as you can. If it is almost time for your next dose, take only that dose. Do not take double or extra doses. Where should I keep my medicine? Keep out of the reach of children. Store at room temperature between 20 and 25 degrees C (68 and 77 degrees F). Protect from light and moisture. Throw away any unused medicine after the expiration date. What should I tell my health care provider before I take this medicine? They need to know if you have any of these conditions: black or bloody stools chest pain difficulty swallowing have had heartburn for over 3 months have heartburn with dizziness, lightheadedness or sweating liver disease stomach pain unexplained weight loss vomiting with blood wheezing an unusual or allergic reaction to omeprazole, other medicines, foods, dyes, or preservatives or trying to get breast-feeding What should I watch for while using this medicine? It can take several days before your heartburn gets better. Check with your doctor or health childcare administrator if your condition does not start to get better, or if it gets worse. Do not treat diarrhea with over the counter products. Contact your doctor if you have diarrhea that lasts more than 2 days or if it is severe and watery. Do not treat yourself for heartburn with this medicine for more than 14 days in a row. You should only use this medicine for a 2-week treatment period once every 4 months. If your symptoms return shortly after your therapy is complete, or within the 4 month time frame, call your doctor or health childcare administrator. You have been given the following additional information: Chest Wall Strain GERD (Adult) Diet, [place] (Adult) Sucralfate Oral tablet Omeprazole Magnesium Gastro-resistant tablet No strenuous activity. Rest. Do not work today, for one day. (Electronically signed by Jose Martin Will MD 03/10/2016 20:16)
--- NOTE | 2016-03-10 20:16 | ED MED RECONCILIATION SUMMARY ---
Patient: DAVID SMITH Medication Reconciliation Report [facility] VisitID: [id number] [address] [place] [address] 55y, M Registration Date/Time: 03/10/2016 Weight: 111.1 kg Height/Length: 72 in. BMI: 33.2 ALLERGIES: Penicillins The patient's Home Medications are listed below: CONTINUE TAKING THE FOLLOWING MEDICATIONS: CeleXA Oral LaMICtal Oral (150 mg) 250mg , twice daily ZyPREXA Oral 2.5 mg, daily The source(s) of the original Home Medication information: patient The following Medications were given to the patient in the Emergency Department: Aspirin [PO] PO 324 mg, administered: 03/10/2016 2:30:00 PM GI cocktail PO 50 ml, administered: 03/10/2016 3:03:00 PM Toradol [IVP] IVP 30 mg, administered: 03/10/2016 3:49:00 PM The following Medications were prescribed to the patient: Carafate four times daily (30 minutes before meals and at bedtime). Dispense forty (40). No refills. -- Jose Martin Will MD Prilosec 40 mg capsules: take 1 capsule orally every day for 10 days. Dispense ten (10). No refill. Substitution is permissible. -- Jose Martin Will MD Flexeril 10 mg: Take 1 orally every 8 hours as needed for muscle spasm. Dispense twenty (20). No refills. Substitution is permissible. -- Jose Martin Will MD Hydrocodone/APAP 5mg/325mg: take 1 to 2 orally every 6 hours as needed for pain. Dispense fifteen (15). No refills. -- Jose Martin Will MD
== END 2016-03-10 17:40 | disposition home or self-care (01) ==
LOC: ED SRH 14:17
DX: R07.89 Other chest pain (principal); K21.0 Gastro-esophageal reflux disease with esophagitis; Z88.0 Allergy status to penicillin
CPT/HCPCS: 90100; 90616; 91556; 92235; 92530; 92610; 92720; 95059

== ENCOUNTER 2016-03-20 18:50 | Emergency (ER) | payer SELFPAY ==
--- NOTE | 2016-03-20 19:48 | ED ORDER SUMMARY ---
..... Patient: DAVID SMITH OrderSheet [facility] VisitID: [id number] [address] [place] [address] 55y, M Registration Date/Time: 03/20/2016 ORDER SHEET Weight: 108.8 kg Allergies: Penicillins GENERAL ORDERS: Shoulder 2V or more Left Urgent (19:05 03/20/2016 EKoroleva P.A.-C) (Ack 19:09 LTapper) (19:26 LTapper) Sling - arm (19:50 03/20/2016 EKoroleva P.A.-C) (19:54 HOShaughtannery R.N.) MEDICATION ORDERS: Motrin PO 800 mg (NOW) (19:47 03/20/2016 EKoroleva P.A.-C) (20:02 HOShaughnessy R.N.) Hydrocodone-APAP PO 5/325 mg (NOW, HIGH ALERT MEDICATION) (19:47 03/20/2016 EKoroleva P.A.-C) (20:03 HOShaughnessy R.N.) IV FLUIDS: ORDER SHEET NOTES: [Electronically signed by Gale Taylor P.A.-C (20:15 03/20/2016)] [Electronically signed by Milton Montano R.N. (20:25 03/20/2016)] [Electronically locked/signed by Milton Montano R.N. (20:25 03/20/2016)]
--- NOTE | 2016-03-20 19:48 | ED CLINICAL REPORT ---
Clinical Report - Physicians/Mid Levels [facility] [address] [place] [address] 03/20/2016 18:54 [id number] Time Seen: 19:24 Mar 20 2016. Arrived- By private vehicle. Historian- patient. HISTORY OF PRESENT ILLNESS Chief Complaint: Injury to left shoulder. The injury happened just prior to arrival. Occurred at work. Patient is experiencing mild pain. Patient denies injury to the head. ( Pallet fell onto posterior shoulder/ scapular. No loc. No head/ neck pain. NO prior injury to the area. NO paresthesias.). REVIEW OF SYSTEMS No swelling or tingling. All systems otherwise negative, except as recorded above. PAST HISTORY The patient's dominant hand is the right. He has not had a prior injury to the same area. SOCIAL HISTORY Former smoker. ADDITIONAL NOTES The nursing notes have been reviewed. PHYSICAL EXAM Vital Signs: 03/20/2016 19:05 BP: 125/81. HR: 69. RR: 16. O2 saturation: 94%. Temp: 98.1 F. Pain level now: 7/10. Appearance: Alert. No acute distress. Head: Head atraumatic. ENT: Nose normal. Pharynx normal. Neck: Normal inspection. No decreased ROM in the neck. No vertebral tenderness. No carotid bruit. CVS: Normal heart rate and rhythm. Heart sounds normal. Respiratory: No respiratory distress. Breath sounds normal. No chest wall injury or accessory muscle use. Back: Normal inspection. No tenderness. Skin: Skin warm. Extremities: Left scapula area: mild tenderness. No laceration, abrasion or puncture wound. Left clavicle area. No tenderness or swelling. Left shoulder: mild tenderness located in the posterior aspect of the shoulder. No swelling, laceration, abrasion or puncture wound. Left acromio-clavicular joint: No tenderness, swelling or laceration. Left proximal humerus: No tenderness or swelling and humerus: No tenderness or swelling. Neuro, Vascular and Tendons: Motor intact. Vascular status intact. Tendon function intact. No pulse deficit present. Skin not pallid. Neuro: Oriented X 3. LABS, X-RAYS, AND EKG Lt Shoulder X-ray: (IMPRESSION: 1. Mild left AC joint degenerative changes Electronically Final signed by:Yovany Dixon MD 03/20/2016 7:55:41 PM). PROGRESS AND PROCEDURES PROCEDURES (shoulder sling, left, ns intact). Course of Care: PATIENT STATUS POST INJURY DIRECT IMPACT TO THE LEFT SHOULDER. WITH NO PARESTHESIAS. PATIENT STABLE. X-RAY UNREMARKABLE. 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 NO INJURY TO THE CERVICAL SPINE, WHICH IS NONTENDER. 03/20/2016 19:05 BP: 125/81. HR: 69. RR: 16. O2 saturation: 94%. Temp: 98.1 F. Pain level now: 710. Patient is stable. Physical exam findings are improved. Symptoms better. Patient/family counseled. Disposition: Discharged. Condition: good. CLINICAL IMPRESSION Contusion to the left shoulder. INSTRUCTIONS Apply ice. Elevate affected areas above chest level. Limit use of your left hand for two days. ([facility] if no improvement in 5 days: [phone]). (Electronically signed by Gale Taylor P.A.-C 03/20/2016 20:15)
--- NOTE | 2016-03-20 19:48 | ED ORDER SUMMARY ---
..... Patient: DAVID SMITH OrderSheet [facility] VisitID: [id number] [address] [place] [address] 55y, M Registration Date/Time: 03/20/2016 ORDER SHEET Weight: 108.8 kg Allergies: Penicillins GENERAL ORDERS: Shoulder 2V or more Left Urgent (19:05 03/20/2016 EKoroleva P.A.-C) (Ack 19:09 LTapper) (19:26 LTapper) Sling - arm (19:50 03/20/2016 EKoroleva P.A.-C) (19:54 HOShaughtannery R.N.) MEDICATION ORDERS: Motrin PO 800 mg (NOW) (19:47 03/20/2016 EKoroleva P.A.-C) (20:02 HOShaughnessy R.N.) Hydrocodone-APAP PO 5/325 mg (NOW, HIGH ALERT MEDICATION) (19:47 03/20/2016 EKoroleva P.A.-C) (20:03 HOShaughnessy R.N.) IV FLUIDS: ORDER SHEET NOTES: [Electronically signed by Gale Taylor P.A.-C (20:15 03/20/2016)] [Electronically signed by Milton Montano R.N. (20:25 03/20/2016)] [Electronically locked/signed by Milton Montano R.N. (20:25 03/20/2016)]
--- NOTE | 2016-03-20 19:48 | ED NURSING NOTES ---
Clinical Report - Nurses [facility] [place] [address] 03/20/2016 18:54 Patient: DAVID SMITH TRIAGE Triage time 1905 PM. Acuity: LEVEL 4. Chief Complaint: INJURY TO LEFT SHOULDER. Alert. No acute distress. --19:08 Milton Montano R.N. 19:05 03/20/16. BP: 125/81. HR: 69. RR: 16. O2 saturation: 94%. Temp: 98.1 F (oral). Pain level now: 08/14. --19: Milton Montano R.N. Weight: 108.8 kg. Height/Length: 72 inches. BMI: 32.6. --19:07 Milton Montano R.N. Medications CeleXA Oral. LaMICtal Oral (Tablet 150 mg) 250mg , twice daily. ZyPREXA Oral 2.5 mg, daily. --19: Milton Montano R.N. Allergies Penicillins. --19: Milton Montano R.N. History Arrived by private vehicle. Historian: patient. Accompanied by family. This occurred today. Mechanism of injury: a light blow with an unknown blunt object. This is sports-related. ( Patient presents to the ED after getting hit in the left shoulder with a blunt heavy object while at work. Patient reports left shoulder and back pain.). He has had neck pain. 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 PAST MEDICAL HX: Tetanus status: up-to-date. Immunizations: up-to-date. SOCIAL HX: Former smoker. Alcohol use. (no). History of drug use. (no). FALL RISK ASSESSMENT: Fall risk assessment completed. No fall risk identified. NUTRITIONAL RISK ASSESSMENT: The nutritional risk assessment revealed no deficiencies. FUNCTIONAL ASSESSMENT: Functional assessment: no impairments noted. LEARNING NEEDS ASSESSMENT: The learning needs assessment revealed no barriers. SKIN INTEGRITY ASSESSMENT: Skin integrity risk assessment completed. No skin integrity risk identified. --19:08 Milton Montano R.N. PROBLEMS: Bipolar Disorder. Esophagitis. Chest Wall Pain. Seasonal allergic rhinitis. Asthma. Borderline personality disorder. Depression. Dental Pain. --19:07 Milton Montano R.N. ADDITIONAL SURGERIES: Cholecystectomy. Knee Surgery. Sinus Surgery. --19:08 Milton Montano R.N. Interventions ID band on patient. To treatment room. --19:08 Milton Montano R.N. PHYSICAL ASSESSMENT Ambulatory to room. GENERAL / NEURO / PSYCH: Oriented X 4. Alert. Appears in no acute distress. EXTREMITIES: Capillary refill is less than 2 seconds in the extremities. Extremity pulses are within normal limits. Extremities exhibit normal ROM. Neuro-vascular status intact to the extremity. Left shoulder: tenderness and swelling. Limited ROM due to pain (diminished abduction, adduction, flexion and extension). SKIN: Skin intact. Skin is warm and dry. --19:09 Milton Montano R.N. NURSING PROGRESS NOTES Reassurance given. Call light placed in reach. Side rails up x 2. Bed placed in lowest position. Brakes of bed on. --19:11 Milton Montano R.N. Sling applied to left arm by mobile home technician; (1951). --19:58 Hailey Bernstein 20:02 03/20/2016 Motrin PO 800 mg given. Allergies verified and confirmed 5 rights. --20:02 Milton Montano R.N. 20:03 03/20/2016 Hydrocodone-APAP (Hydrocodone-Acetaminophen) PO 5/325 mg Tablets 1 tab given. Allergies verified, confirmed 5 rights and sedative warning given to the patient and patient's family. --20:03 Milton Montano R.N. DISPOSITION / DISCHARGE Condition at departure: improved. The goals identified in the patient's plan of care were met. No learning barriers present. Discharge instructions provided and reviewed with the patient. Reviewed splint care instructions. Reviewed referral to a primary care physician. He has no diet restrictions. Activity restrictions (minimal use of injured extremity) reviewed. Work note given. Patient verbalized understanding. Written instructions provided in Greenlandic. The patient was discharged home and accompanied by spouse. He left the Emergency Department ambulatory and via private vehicle. Spouse driving. FALL RISK ASSESSMENT: Fall risk assessment completed. No fall risk identified. --20:23 Milton Montano R.N. 20:22 03/20/16. BP: 131/92. HR: 79. RR: 16. O2 saturation: 99% on room air. Temp: 98.2 F (oral). Pain level now: 05/15. --20:23 Milton Montano R.N. Departure time: 2003 PM. --20:24 Milton Montano R.N. Locked/Released at 03/20/2016 20:25 by Milton Montano R.N.
--- NOTE | 2016-03-20 19:48 | ED NURSING NOTES ---
Clinical Report - Nurses [facility] [place] [address] 03/20/2016 18:54 Patient: DAVID SMITH TRIAGE Triage time 1905 PM. Acuity: LEVEL 4. Chief Complaint: INJURY TO LEFT SHOULDER. Alert. No acute distress. --19:08 Milton Montano R.N. 19:05 03/20/16. BP: 125/81. HR: 69. RR: 16. O2 saturation: 94%. Temp: 98.1 F (oral). Pain level now: 08/14. --19: Milton Montano R.N. Weight: 108.8 kg. Height/Length: 72 inches. BMI: 32.6. --19:07 Milton Montano R.N. Medications CeleXA Oral. LaMICtal Oral (Tablet 150 mg) 250mg , twice daily. ZyPREXA Oral 2.5 mg, daily. --19: Milton Montano R.N. Allergies Penicillins. --19: Milton Montano R.N. History Arrived by private vehicle. Historian: patient. Accompanied by family. This occurred today. Mechanism of injury: a light blow with an unknown blunt object. This is sports-related. ( Patient presents to the ED after getting hit in the left shoulder with a blunt heavy object while at work. Patient reports left shoulder and back pain.). He has had neck pain. 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 PAST MEDICAL HX: Tetanus status: up-to-date. Immunizations: up-to-date. SOCIAL HX: Former smoker. Alcohol use. (no). History of drug use. (no). FALL RISK ASSESSMENT: Fall risk assessment completed. No fall risk identified. NUTRITIONAL RISK ASSESSMENT: The nutritional risk assessment revealed no deficiencies. FUNCTIONAL ASSESSMENT: Functional assessment: no impairments noted. LEARNING NEEDS ASSESSMENT: The learning needs assessment revealed no barriers. SKIN INTEGRITY ASSESSMENT: Skin integrity risk assessment completed. No skin integrity risk identified. --19:08 Milton Montano R.N. PROBLEMS: Bipolar Disorder. Esophagitis. Chest Wall Pain. Seasonal allergic rhinitis. Asthma. Borderline personality disorder. Depression. Dental Pain. --19:07 Milton Montano R.N. ADDITIONAL SURGERIES: Cholecystectomy. Knee Surgery. Sinus Surgery. --19:08 Milton Montano R.N. Interventions ID band on patient. To treatment room. --19:08 Milton Montano R.N. PHYSICAL ASSESSMENT Ambulatory to room. GENERAL / NEURO / PSYCH: Oriented X 4. Alert. Appears in no acute distress. EXTREMITIES: Capillary refill is less than 2 seconds in the extremities. Extremity pulses are within normal limits. Extremities exhibit normal ROM. Neuro-vascular status intact to the extremity. Left shoulder: tenderness and swelling. Limited ROM due to pain (diminished abduction, adduction, flexion and extension). SKIN: Skin intact. Skin is warm and dry. --19:09 Milton Montano R.N. NURSING PROGRESS NOTES Reassurance given. Call light placed in reach. Side rails up x 2. Bed placed in lowest position. Brakes of bed on. --19:11 Milton Montano R.N. Sling applied to left arm by water and fire technician; (1951). --19:58 Hailey Bernstein 20:02 03/20/2016 Motrin PO 800 mg given. Allergies verified and confirmed 5 rights. --20:02 Milton Montano R.N. 20:03 03/20/2016 Hydrocodone-APAP (Hydrocodone-Acetaminophen) PO 5/325 mg Tablets 1 tab given. Allergies verified, confirmed 5 rights and sedative warning given to the patient and patient's family. --20:03 Milton Montano R.N. DISPOSITION / DISCHARGE Condition at departure: improved. The goals identified in the patient's plan of care were met. No learning barriers present. Discharge instructions provided and reviewed with the patient. Reviewed splint care instructions. Reviewed referral to a primary care physician. He has no diet restrictions. Activity restrictions (minimal use of injured extremity) reviewed. Work note given. Patient verbalized understanding. Written instructions provided in Greenlandic. The patient was discharged home and accompanied by spouse. He left the Emergency Department ambulatory and via private vehicle. Spouse driving. FALL RISK ASSESSMENT: Fall risk assessment completed. No fall risk identified. --20:23 Milton Montano R.N. 20:22 03/20/16. BP: 131/92. HR: 79. RR: 16. O2 saturation: 99% on room air. Temp: 98.2 F (oral). Pain level now: 05/15. --20:23 Milton Montano R.N. Departure time: 2003 PM. --20:24 Milton Montano R.N. Locked/Released at 03/20/2016 20:25 by Milton Montano R.N.
--- NOTE | 2016-03-20 19:48 | ED CLINICAL REPORT ---
Clinical Report - Physicians/Mid Levels [facility] [address] [place] [address] 03/20/2016 18:54 [id number] Time Seen: 19:24 Mar 20 2016. Arrived- By private vehicle. Historian- patient. HISTORY OF PRESENT ILLNESS Chief Complaint: Injury to left shoulder. The injury happened just prior to arrival. Occurred at work. Patient is experiencing mild pain. Patient denies injury to the head. ( Pallet fell onto posterior shoulder/ scapular. No loc. No head/ neck pain. NO prior injury to the area. NO paresthesias.). REVIEW OF SYSTEMS No swelling or tingling. All systems otherwise negative, except as recorded above. PAST HISTORY The patient's dominant hand is the right. He has not had a prior injury to the same area. SOCIAL HISTORY Former smoker. ADDITIONAL NOTES The nursing notes have been reviewed. PHYSICAL EXAM Vital Signs: 03/20/2016 19:05 BP: 125/81. HR: 69. RR: 16. O2 saturation: 94%. Temp: 98.1 F. Pain level now: 7/10. Appearance: Alert. No acute distress. Head: Head atraumatic. ENT: Nose normal. Pharynx normal. Neck: Normal inspection. No decreased ROM in the neck. No vertebral tenderness. No carotid bruit. CVS: Normal heart rate and rhythm. Heart sounds normal. Respiratory: No respiratory distress. Breath sounds normal. No chest wall injury or accessory muscle use. Back: Normal inspection. No tenderness. Skin: Skin warm. Extremities: Left scapula area: mild tenderness. No laceration, abrasion or puncture wound. Left clavicle area. No tenderness or swelling. Left shoulder: mild tenderness located in the posterior aspect of the shoulder. No swelling, laceration, abrasion or puncture wound. Left acromio-clavicular joint: No tenderness, swelling or laceration. Left proximal humerus: No tenderness or swelling and humerus: No tenderness or swelling. Neuro, Vascular and Tendons: Motor intact. Vascular status intact. Tendon function intact. No pulse deficit present. Skin not pallid. Neuro: Oriented X 3. LABS, X-RAYS, AND EKG Lt Shoulder X-ray: (IMPRESSION: 1. Mild left AC joint degenerative changes Electronically Final signed by:Yovany Dixon MD 03/20/2016 7:55:41 PM). PROGRESS AND PROCEDURES PROCEDURES (shoulder sling, left, ns intact). Course of Care: PATIENT STATUS POST INJURY DIRECT IMPACT TO THE LEFT SHOULDER. WITH NO PARESTHESIAS. PATIENT STABLE. X-RAY UNREMARKABLE. 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 NO INJURY TO THE CERVICAL SPINE, WHICH IS NONTENDER. 03/20/2016 19:05 BP: 125/81. HR: 69. RR: 16. O2 saturation: 94%. Temp: 98.1 F. Pain level now: 710. Patient is stable. Physical exam findings are improved. Symptoms better. Patient/family counseled. Disposition: Discharged. Condition: good. CLINICAL IMPRESSION Contusion to the left shoulder. INSTRUCTIONS Apply ice. Elevate affected areas above chest level. Limit use of your left hand for two days. ([facility] if no improvement in 5 days: [phone]). (Electronically signed by Gale Taylor P.A.-C 03/20/2016 20:15)
--- NOTE | 2016-03-20 19:55 | DIAGNOSTIC IMAGING REPORT ---
PROCEDURE: XR SHOULDER 2 OR MORE VW-LEFT INDICATION: Trauma, initial encounter TECHNIQUE: Four views COMPARISON: None. FINDINGS: No fracture, dislocation or soft tissue calcifications. Mild AC joint degenerative changes. IMPRESSION: 1. Mild left AC joint degenerative changes
--- NOTE | 2016-03-20 20:25 | ED DISCHARGE INSTRUCTIONS ---
Patient: DAVID SMITH General Instructions [facility] VisitID: [id number] [place] [address] 55y, M Registration Date/Time: 03/20/2016 Contusion to the left shoulder. INSTRUCTIONS Apply ice. Elevate affected areas above chest level. Limit use of your left hand for two days. ([facility] if no improvement in 5 days: [phone]). ADDITIONAL INFORMATION Contusion:Upper Extremity You have a contusion of your upper extremity (arm, wrist, hand or fingers). This causes local pain, swelling and sometimes bruising. There are no broken bones. This injury takes a few days to a few weeks to heal. A sling may be provided for comfort and arm support. Home Care: 1) Keep your arm elevated to reduce pain and swelling. This is very important during the first 48 hours. 2) Apply an ice pack (ice cubes in a plastic bag, wrapped in a towel) over the injured area for 20 minutes every 1-2 hours the first day for pain relief. Continue this 3-4 times a day until the pain and swelling goes away. 3) You may use acetaminophen (Tylenol) or ibuprofen (Motrin, Advil) to control pain, unless another pain medicine was prescribed. [ NOTE : If you have chronic liver or kidney disease or ever had a stomach ulcer or GI bleeding, talk with your doctor before using these medicines.] 4) If a sling was provided, you may remove it to shower or bathe. Do not wear it for more than one week or it may cause joint stiffness. Follow Up with your doctor or this facility if you are not starting to improve within the next THREE days. [NOTE: If X-rays were taken, they will be reviewed by a radiologist. You will be notified of any new findings that may affect your care.] Get Prompt Medical Attention if any of the following occur: -- Pain or swelling increases -- Redness, warmth or drainage -- Hand or fingers becomes cold, blue, numb or tingly Shoulder Contusion You have a contusion of your shoulder. This causes local pain, swelling, and sometimes bruising. There are no broken bones. This injury takes a few days, or up to six weeks to heal, depending on the severity. Moderate to severe shoulder contusions are treated with a sling or shoulder immobilizer. Minor contusions can be treated without any special support. Home Care: If a sling was provided, leave it in place for the time advised by your doctor. If you are unsure how long to wear it, ask for advice. If the sling becomes loose, adjust it so that your forearm is level with the ground and the shoulder feels well supported. Apply an ice pack (ice cubes in a plastic bag, wrapped in a towel) over the injured area for 20 minutes every 1 to 2 hours the first day for pain relief. Continue this 3 to 4 times a day until the pain and swelling go away. You may use acetaminophen (Tylenol) or ibuprofen (Motrin, Advil) to control pain, unless another pain medicine was prescribed. (NOTE: If you have chronic liver or kidney disease or ever had a stomach ulcer or GI bleeding, talk with your doctor before using these medicines.) Shoulder joints become stiff if left in a sling for too long. [id number] exercises should usually be started within the first ten days after injury. Consult your doctor on what type of exercises to do and how soon to start. Unless you were told otherwise, you may remove the sling to shower or bathe. Follow Up with your doctor, or as advised by our staff, if you are not starting to improve within the next 5 days. Get Prompt Medical Attention if any of the following occur: Pain or swelling increases Large amount of bruising of the shoulder or upper arm Hand or fingers become cold, blue, numb or tingly You have been given the following additional information: Contusion, Upper Extremity Shoulder Contusion Limit use of your left hand for two days. (Electronically signed by Gale Taylor P.A.-C 03/20/2016 20:15)
--- NOTE | 2016-03-20 20:25 | ED MED RECONCILIATION SUMMARY ---
Patient: SARAH DAVID Jabari Medication Reconciliation Report [facility] VisitID: [id number] [address] [place] [address] 55y, M Registration Date/Time: 03/20/2016 Weight: 108.8 kg Height/Length: 72 in. BMI: 32.6 ALLERGIES: Penicillins The patient's Home Medications are listed below: THE FOLLOWING MEDICATIONS NEED TO BE RECONCILED: CeleXA Oral LaMICtal Oral (150 mg) 250mg , twice daily ZyPREXA Oral 2.5 mg, daily The source(s) of the original Home Medication information: Not obtained. The following Medications were given to the patient in the Emergency Department: Motrin [PO] PO 800 mg, administered: 03/20/2016 8:02:00 PM Hydrocodone-APAP [PO] PO 1 tab, administered: 03/20/2016 8:03:00 PM The following Medications were prescribed to the patient: None.
--- NOTE | 2016-03-20 20:25 | ED MAR SUMMARY ---
..... Medication Administration Record [facility] [address] [place] [address] Patient: DAVID SMITH Visit ID: [id number] 55y, M Weight: 108.8 kg Height/Length: 72 in BMI: 32.6 ALLERGIES: Penicillins Given 20:03/20/2016 Milton Montano, R.N. Medication Administered: MOTRIN [PO], Dose: 800 mg PO. Medication Ordered: Motrin PO 800 mg (NOW). Given 20:03 03/20/2016 Milton Montano, R.N. Medication Administered: HYDROCODONE-APAP [PO] (HYDROCODONE-ACETAMINOPHEN), Dose: 1 tab 5/325 mg Tablets PO. Medication Ordered: Hydrocodone-APAP PO 5/325 mg (NOW, HIGH ALERT MEDICATION).
--- NOTE | 2016-03-20 20:25 | ED MED RECONCILIATION SUMMARY ---
Patient: SARAH DAVID Jabari Medication Reconciliation Report [facility] VisitID: [id number] [address] [place] [address] 55y, M Registration Date/Time: 03/20/2016 Weight: 108.8 kg Height/Length: 72 in. BMI: 32.6 ALLERGIES: Penicillins The patient's Home Medications are listed below: THE FOLLOWING MEDICATIONS NEED TO BE RECONCILED: CeleXA Oral LaMICtal Oral (150 mg) 250mg , twice daily ZyPREXA Oral 2.5 mg, daily The source(s) of the original Home Medication information: Not obtained. The following Medications were given to the patient in the Emergency Department: Motrin [PO] PO 800 mg, administered: 03/20/2016 8:02:00 PM Hydrocodone-APAP [PO] PO 1 tab, administered: 03/20/2016 8:03:00 PM The following Medications were prescribed to the patient: None.
--- NOTE | 2016-03-20 20:25 | ED MAR SUMMARY ---
..... Medication Administration Record [facility] [address] [place] [address] Patient: DAVID SMITH Visit ID: [id number] 55y, M Weight: 108.8 kg Height/Length: 72 in BMI: 32.6 ALLERGIES: Penicillins Given 20:03/20/2016 Milton Montano, R.N. Medication Administered: MOTRIN [PO], Dose: 800 mg PO. Medication Ordered: Motrin PO 800 mg (NOW). Given 20:03 03/20/2016 Milton Montano, R.N. Medication Administered: HYDROCODONE-APAP [PO] (HYDROCODONE-ACETAMINOPHEN), Dose: 1 tab 5/325 mg Tablets PO. Medication Ordered: Hydrocodone-APAP PO 5/325 mg (NOW, HIGH ALERT MEDICATION).
== END 2016-03-20 20:04 | disposition home or self-care (01) ==
LOC: ED SRH 18:50
DX: S40.012A Contusion of left shoulder, initial encounter (principal); W22.8XXA Striking against or struck by other objects, initial encounter; Y93.9 Activity, unspecified; Y92.9 Unspecified place or not applicable; Y99.0 Civilian activity done for income or pay; J45.909 Unspecified asthma, uncomplicated; Z79.899 Other long term (current) drug therapy; Z87.891 Personal history of nicotine dependence; Z88.0 Allergy status to penicillin

== ENCOUNTER 2016-03-22 20:06 | Emergency (ER) | payer SELFPAY ==
--- NOTE | 2016-03-22 20:54 | ED NURSING NOTES ---
Clinical Report - Nurses [facility] [address] [place] [address] 03/22/2016 20:08 [id number] Triage time 2014. Acuity: LEVEL 5. Chief Complaint: NECK PAIN and BACK PAIN. Alert. No acute distress. --20:25 Surekha Zapata 20:22 03/22/16. BP: 125/77. HR: 79. RR: 16. O2 saturation: 96%. Temp: 98.9 F. Pain level now 09/14. --20:25 Surekha Zapata. Weight: 108.8 kg. Height/Length: 72 inches. BMI: 32.6. --20:21 Surekha Zapata. Medications CeleXA Oral. LaMICtal Oral (Tablet 150 mg) 250mg , twice daily. ZyPREXA Oral 2.5 mg, daily. --20:24 Surekha Zapata. Allergies Penicillins. --20:24 Surekha Zapata. History Arrived by private vehicle. Historian: patient. Accompanied by family. Onset. (2 weeks ago). History of recent trauma- ([employer], seen here x 3 for same). 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 FALL RISK ASSESSMENT: Fall risk assessment completed. No fall risk identified. NUTRITIONAL RISK ASSESSMENT: The nutritional risk assessment revealed no deficiencies. FUNCTIONAL ASSESSMENT: Functional assessment: no impairments noted. LEARNING NEEDS ASSESSMENT: The learning needs assessment revealed no barriers. SKIN INTEGRITY ASSESSMENT: Skin integrity risk assessment completed. No skin integrity risk identified. --20:25 Surekha Zapata. PROBLEMS: Contusion. Bipolar Disorder. Esophagitis. Chest Wall Pain. Seasonal allergic rhinitis. Asthma. Borderline personality disorder. Depression. Dental Pain. --20:24 Surekha Zapata. ADDITIONAL SURGERIES: Cholecystectomy. Knee Surgery. Sinus Surgery. --20:24 Surekha Zapata. Interventions ID band on patient. To treatment room. --20:25 Surekha Zapata. PHYSICAL ASSESSMENT Ambulatory to room. GENERAL / NEURO / PSYCH: Alert. Oriented X 4. Appears in no acute distress. RESPIRATORY: Respirations not labored. Chest nontender. Breath sounds within normal limits. CVS: Normal heart rate and rhythm. Capillary refill less than 2 seconds. GI / : Abdomen soft and nontender. Bowel sounds within normal limits. EXTREMITIES: Sensation intact in extremities. ROM of extremities within normal limits. BACK: Normal inspection of the neck and back. Limited ROM of the neck and back. No neck or back tenderness. --20:26 Surekha Zapata. NURSING PROGRESS NOTES Two patient identifiers checked. Call light placed in reach. Bed placed in lowest position. Brakes of bed on. Patient ready for evaluation- chart flagged. --20:26 Surekha Zapata 21:10 03/22/2016 Toradol (Ketorolac Tromethamine) IM 60 mg given. Given in the right gluteus fabiana. Allergies verified and confirmed 5 rights. --21:10 Surekha Zapata. DISPOSITION / DISCHARGE Departure time: 2109. Condition at departure: unchanged and stable. No learning barriers present. Discharge instructions provided and reviewed with the patient. Reviewed medication(s). Patient and spouse verbalized understanding. Written instructions provided in Georgian. The patient was discharged by the nurse practitioner. He was discharged home and accompanied by spouse. He left the Emergency Department ambulatory and via private vehicle. Spouse driving. --21:11 Surekha Zapata. Locked/Released at 03/22/2016 21:12 by Surekha Zapata,
--- NOTE | 2016-03-22 20:54 | ED ORDER SUMMARY ---
..... Patient: DAVID SMITH OrderSheet [facility] VisitID: [id number] [address] [place] [address] 55y, M Registration Date/Time: 03/22/2016 ORDER SHEET Weight: 108.8 kg Allergies: Penicillins GENERAL ORDERS: MEDICATION ORDERS: Toradol IM 60 mg (NOW) (20:46 03/22/2016 Joss A.R.N.P.) (21:10 [facility]) IV FLUIDS: ORDER SHEET NOTES: [Electronically signed by uSrekha Zapata (21:12 03/22/2016)] [Electronically signed by Karla Younger.R.N.P. (21:49 03/22/2016)] [Electronically locked/signed by Surekha Zapata (21:12 03/22/2016)]
--- NOTE | 2016-03-22 20:54 | ED CLINICAL REPORT ---
Clinical Report - Physicians/Mid Levels [facility] [place] [address] [place] [address] 03/22/2016 20:08 Patient: DAVID SMITH Time Seen: 20:29; initial patient contact, initial documentation, patient care assumed. Arrived- By private vehicle. Historian- patient and significant other. RETURN VISIT: recently seen in this ED by another ED physician. Seen now for a new unrelated complaint. HISTORY OF PRESENT ILLNESS Chief Complaint: NECK PAIN and BACK PAIN. Modifying factors- worsened by rotation of the head to the right, neck flexion, bending over or lifting. Relieved by taking prescription medications. Onset- about 2 weeks ago and it is still present. It is described as being severe and in the area of the left side of the cervical spine, left side of the upper thoracic spine and upper thoracic spine. The quality is noted to be "pain" and similar to prior episodes. No radiation. No bladder dysfunction, bowel dysfunction, sensory loss or motor loss. 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 Patient denies an injury. Patient also notes injury to the chest. Patient denies injury to the head and other injury (and shoulder). Similar symptoms previously: None. Recent medical care: The patient was seen recently at this facility in the emergency department. ( txed 2/3, dx gerd and chest wall pain, txed here 03/20 for shoulder injury). REVIEW OF SYSTEMS No difficulty breathing, chest pain, abdominal pain or difficulty with urination. All systems otherwise negative, except as recorded above. PAST HISTORY See nurses notes. PROBLEMS: Contusion. Bipolar Disorder. Esophagitis. Chest Wall Pain. Seasonal allergic rhinitis. Asthma. Borderline personality disorder. Depression. Dental Pain. --20:24 Surekha Zapata. ADDITIONAL SURGERIES: Cholecystectomy. Knee Surgery. Sinus Surgery. --20:24 Surekha Zapata. SOCIAL HISTORY Former smoker. No alcohol use or drug use. No recent travel. Is a local resident. FAMILY HISTORY Negative. ADDITIONAL NOTES The nursing notes have been reviewed with agreement regarding the chief complaint, HPI, ROS, PMH and patient medications and allergies. PHYSICAL EXAM Vital Signs: 03/22/2016 20:22 BP: 125/77. HR: 79. RR: 16. O2 saturation: 96%. Temp: 98.9 F. Have been reviewed as normal and appear to be correct. Appearance: Alert. No acute distress. Neck: Abnormal inspection. Neck nontender. Painful ROM. Pain in the neck upon movement. Decrease in ROM. No muscle spasm in the neck. No vertebral tenderness. No soft tissue tenderness, lymphadenopathy or meningeal signs. CVS: Normal heart rate and rhythm. Heart sounds normal. Pulses normal. Respiratory: No respiratory distress. Breath sounds normal. Chest nontender. Back: Normal inspection. No tenderness. Painless ROM. Skin: Skin warm and dry. Normal skin color. No rash. Normal skin turgor. Extremities: Extremities exhibit normal ROM. Extremities nontender. Neuro: Oriented X 3. Mood/affect normal. No motor deficit. No sensory deficit. PROGRESS AND PROCEDURES Course of Care: old er records reviewed 20:57 03/22/16. pt has alexsandra for recommendations of chronic conditions and limit imaging, #12 er visits, see report for full details. Patient counseled in person regarding the patient's stable condition and diagnosis. 20:53. Differential Diagnosis: Other possible considerations: substance abuse, neck sprain, shoulder sprain, fx. Above considerations are based on history and physical exam. Differential diagnosis was discussed with patient and patient's spouse. Disposition: Discharged home in good and improved condition (20:54). Condition: good and stable. CLINICAL IMPRESSION Acute neck pain. No neuro deficit. Acute traumatic thoracic back pain. INSTRUCTIONS Warnings: GENERAL WARNINGS: Return or contact your physician immediately if your condition worsens or changes unexpectedly, if not improving as expected, or if other problems arise. SPECIFICALLY, return if you develop numbness or incontinence of feces (loss of bowel control) or urine (loss of bladder control). Prescription Medications: Naproxen 500 mg tablets: take 1 orally every 12 hours as needed for pain. Dispense twenty (20). No refills. Flexeril 10 mg: Take 1 orally every 8 hours as needed for muscle spasm. Dispense twenty (20). No refills. Substitution is permissible. Follow-up: Follow up with your doctor in about three days as needed. Call for an appointment. Summary of care provided to patient. Understanding of the discharge instructions verbalized by patient. (Electronically signed by Karla Younger A.R.N.P. 03/22/2016 21:49)
--- NOTE | 2016-03-22 20:54 | ED ORDER SUMMARY ---
..... Patient: DAVID SMITH OrderSheet [facility] VisitID: [id number] [address] [place] [address] 55y, M Registration Date/Time: 03/22/2016 ORDER SHEET Weight: 108.8 kg Allergies: Penicillins GENERAL ORDERS: MEDICATION ORDERS: Toradol IM 60 mg (NOW) (20:46 03/22/2016 Joss A.R.N.P.) (21:10 [facility]) IV FLUIDS: ORDER SHEET NOTES: [Electronically signed by Surekha Zapata (21:12 03/22/2016)] [Electronically signed by Karla Younger.R.N.P. (21:49 03/22/2016)] [Electronically locked/signed by Surekha Zapata (21:12 03/22/2016)]
--- NOTE | 2016-03-22 20:54 | ED NURSING NOTES ---
Clinical Report - Nurses [facility] [address] [place] [address] 03/22/2016 20:08 [id number] Triage time 2014. Acuity: LEVEL 5. Chief Complaint: NECK PAIN and BACK PAIN. Alert. No acute distress. --20:25 Surekha Zapata 20:22 03/22/16. BP: 125/77. HR: 79. RR: 16. O2 saturation: 96%. Temp: 98.9 F. Pain level now 09/14. --20:25 Surekha Zapata. Weight: 108.8 kg. Height/Length: 72 inches. BMI: 32.6. --20:21 Surekha Zapata. Medications CeleXA Oral. LaMICtal Oral (Tablet 150 mg) 250mg , twice daily. ZyPREXA Oral 2.5 mg, daily. --20:24 Surekha Zapata. Allergies Penicillins. --20:24 Surekha Zapata. History Arrived by private vehicle. Historian: patient. Accompanied by family. Onset. (2 weeks ago). History of recent trauma- (L & I, seen here x 3 for same). 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 FALL RISK ASSESSMENT: Fall risk assessment completed. No fall risk identified. NUTRITIONAL RISK ASSESSMENT: The nutritional risk assessment revealed no deficiencies. FUNCTIONAL ASSESSMENT: Functional assessment: no impairments noted. LEARNING NEEDS ASSESSMENT: The learning needs assessment revealed no barriers. SKIN INTEGRITY ASSESSMENT: Skin integrity risk assessment completed. No skin integrity risk identified. --20:25 Surekha Zapata. PROBLEMS: Contusion. Bipolar Disorder. Esophagitis. Chest Wall Pain. Seasonal allergic rhinitis. Asthma. Borderline personality disorder. Depression. Dental Pain. --20:24 Surekha Zapata. ADDITIONAL SURGERIES: Cholecystectomy. Knee Surgery. Sinus Surgery. --20:24 Surekha Zapata. Interventions ID band on patient. To treatment room. --20:25 Surekha Zapata. PHYSICAL ASSESSMENT Ambulatory to room. GENERAL / NEURO / PSYCH: Alert. Oriented X 4. Appears in no acute distress. RESPIRATORY: Respirations not labored. Chest nontender. Breath sounds within normal limits. CVS: Normal heart rate and rhythm. Capillary refill less than 2 seconds. GI / : Abdomen soft and nontender. Bowel sounds within normal limits. EXTREMITIES: Sensation intact in extremities. ROM of extremities within normal limits. BACK: Normal inspection of the neck and back. Limited ROM of the neck and back. No neck or back tenderness. --20:26 Surekha Zapata. NURSING PROGRESS NOTES Two patient identifiers checked. Call light placed in reach. Bed placed in lowest position. Brakes of bed on. Patient ready for evaluation- chart flagged. --20:26 Surekha Zapata 21:10 03/22/2016 Toradol (Ketorolac Tromethamine) IM 60 mg given. Given in the right gluteus fabiana. Allergies verified and confirmed 5 rights. --21:10 Surekha Zapata. DISPOSITION / DISCHARGE Departure time: 2109. Condition at departure: unchanged and stable. No learning barriers present. Discharge instructions provided and reviewed with the patient. Reviewed medication(s). Patient and spouse verbalized understanding. Written instructions provided in Congolese. The patient was discharged by the nurse practitioner. He was discharged home and accompanied by spouse. He left the Emergency Department ambulatory and via private vehicle. Spouse driving. --21:11 Surekha Zapata. Locked/Released at 03/22/2016 21:12 by Surekha Zapata,
--- NOTE | 2016-03-22 21:50 | ED MED RECONCILIATION SUMMARY ---
Patient: DAVID SMITH Medication Reconciliation Report [facility] VisitID: [id number] [address] [place] [address] 55y, M Registration Date/Time: 03/22/2016 Weight: 108.8 kg Height/Length: 72 in. BMI: 32.6 ALLERGIES: Penicillins The patient's Home Medications are listed below: THE FOLLOWING MEDICATIONS NEED TO BE RECONCILED: CeleXA Oral LaMICtal Oral (150 mg) 250mg , twice daily ZyPREXA Oral 2.5 mg, daily The source(s) of the original Home Medication information: Not obtained. The following Medications were given to the patient in the Emergency Department: Toradol [IM] IM 60 mg, administered: 03/22/2016 9:10:00 PM The following Medications were prescribed to the patient: Naproxen 500 mg tablets: take 1 orally every 12 hours as needed for pain. Dispense twenty (20). No refills. -- Karla Younger A.R.NBreannaP. Flexeril 10 mg: Take 1 orally every 8 hours as needed for muscle spasm. Dispense twenty (20). No refills. Substitution is permissible. -- Karla Younger A.R.NBreannaP.
--- NOTE | 2016-03-22 21:50 | ED MED RECONCILIATION SUMMARY ---
Patient: DAVID SMITH Medication Reconciliation Report [facility] VisitID: [id number] [address] [place] [address] 55y, M Registration Date/Time: 03/22/2016 Weight: 108.8 kg Height/Length: 72 in. BMI: 32.6 ALLERGIES: Penicillins The patient's Home Medications are listed below: THE FOLLOWING MEDICATIONS NEED TO BE RECONCILED: CeleXA Oral LaMICtal Oral (150 mg) 250mg , twice daily ZyPREXA Oral 2.5 mg, daily The source(s) of the original Home Medication information: Not obtained. The following Medications were given to the patient in the Emergency Department: Toradol [IM] IM 60 mg, administered: 03/22/2016 9:10:00 PM The following Medications were prescribed to the patient: Naproxen 500 mg tablets: take 1 orally every 12 hours as needed for pain. Dispense twenty (20). No refills. -- Karla Younger A.R.NBreannaP. Flexeril 10 mg: Take 1 orally every 8 hours as needed for muscle spasm. Dispense twenty (20). No refills. Substitution is permissible. -- Karla Younger A.R.NBreannaP.
--- NOTE | 2016-03-22 21:50 | ED MAR SUMMARY ---
..... Medication Administration Record [facility] [address] [place] [address] Patient: DAVID SMITH Visit ID: [id number] 55y, M Weight: 108.8 kg Height/Length: 72 in BMI: 32.6 ALLERGIES: Penicillins Given 21:10 03/22/2016 Surekha Zapata, Medication Administered: TORADOL [IM] (KETOROLAC TROMETHAMINE), Dose: 60 mg IM. Medication Ordered: Toradol IM 60 mg (NOW).
--- NOTE | 2016-03-22 21:50 | ED MAR SUMMARY ---
..... Medication Administration Record [facility] [address] [place] [address] Patient: DAVID SMITH Visit ID: [id number] 55y, M Weight: 108.8 kg Height/Length: 72 in BMI: 32.6 ALLERGIES: Penicillins Given 21:10 03/22/2016 Surekha Zapata, Medication Administered: TORADOL [IM] (KETOROLAC TROMETHAMINE), Dose: 60 mg IM. Medication Ordered: Toradol IM 60 mg (NOW).
--- NOTE | 2016-03-22 21:50 | ED DISCHARGE INSTRUCTIONS ---
Patient: DAVID SMITH General Instructions [facility] VisitID: [id number] [address] [place] [address] 55y, M Registration Date/Time: 03/22/2016 Acute neck pain. No neuro deficit. Acute traumatic thoracic back pain. INSTRUCTIONS Warnings: GENERAL WARNINGS: Return or contact your physician immediately if your condition worsens or changes unexpectedly, if not improving as expected, or if other problems arise. SPECIFICALLY, return if you develop numbness or incontinence of feces (loss of bowel control) or urine (loss of bladder control). Prescription Medications: Naproxen 500 mg tablets: take 1 orally every 12 hours as needed for pain. Dispense twenty (20). No refills. Flexeril 10 mg: Take 1 orally every 8 hours as needed for muscle spasm. Dispense twenty (20). No refills. Substitution is permissible. Follow-up: Follow up with your doctor in about three days as needed. Call for an appointment. Summary of care provided to patient. Understanding of the discharge instructions verbalized by patient. ADDITIONAL INFORMATION Neck Pain [No Trauma] There are several possible causes of neck pain without injury: You can get a minor ligament sprain or muscle strain from a sudden minor neck movement. Sleeping with your neck in an awkward position can also cause this. Some persons respond to emotional stress by tensing the muscles of their neck, shoulders and upper back. Chronic spasm in these muscles can cause neck pain and sometimes headaches. Gradualwear and tearof the joints in the spine can cause degenerative arthritis.This can be a source of occasional or chronic neck pain. With aging or repeated small injuries to the neck, the spinal disks (the cushions between each spinal bone) may bulge and put pressure on a nearby spinal nerve. This causes tingling, pain or numbness spreading from the neck to the shoulder, arm or hand on one side. Acute neck pain usually gets better in one to two weeks. Neck pain related to disk disease, arthritis in the spinal joints or spinal stenosis (narrowing of the spinal canal) can become chronic and last for months or years. Unless you had a forceful physical injury (for example, a car accident or fall), X-rays are usually not ordered for the initial evaluation of neck pain. If pain continues and does not respond to medical treatment, x-rays and other tests may be performed at a later time. Home Care: Rest and relax the muscles. Use a comfortable pillow that supports the head and keeps the spine in a neutral position. The position of the head should not be tilted forward or backward. A rolled up towel may help for a custom fit. Some persons find relief with heat (hot shower, hot bath or heating pad) and massage, while others prefer cold packs (crushed or cubed ice in a plastic bag, wrapped in a towel) . Try both and use the method that feels best for 20 minutes several times a day. You may use acetaminophen (Tylenol) or ibuprofen (Motrin, Advil) to control pain, unless another medicine was prescribed. [ NOTE : If you have chronic liver or kidney disease or ever had a stomach ulcer or GI bleeding, talk with your doctor before using these medicines.] Follow Up with your physician or this facility if your symptoms do not show signs of improvement after one week. Physical therapy or further tests may be needed. [NOTE: A radiologist will review any X-rays or CT scans that were taken. We will notify you of any new findings that may affect your care.] Get Prompt Medical Attention if any of the following occur: Pain becomes worse or spreads into one or both arms Weakness or numbness in one or both arms Increasing headache Neck swelling, difficulty or painful swallowing Fever of 100.4F (38C) or higher, or as directed by your healthcare provider Back Pain [Acute Or Chronic] Back pain is usually caused by an injury to the muscles or ligaments of the spine. Sometimes the disks that separate each bone in the spine may bulge and cause pain by pressing on a nearby nerve. Back pain may also appear after a sudden twisting/bending force (such as in a car accident), after a simple awkward movement, or lifting something heavy with poor body positioning. In either case, muscle spasm is often present and adds to the pain. Acute back pain usually gets better in one to two weeks. Back pain related to disk disease, arthritis in the spinal joints or spinal stenosis (narrowing of the spinal canal) can become chronic and last for months or years. Unless you had a physical injury (for example, a car accident or fall) X-rays are usually not ordered for the initial evaluation of back pain. If pain continues and does not respond to medical treatment, x-rays and other tests may be performed at a later time. Home Care: You may need to stay in bed the first few days. But, as soon as possible, begin sitting or walking to avoid problems with prolonged bed rest (muscle weakness, worsening back stiffness and pain, blood clots in the legs). When in bed, try to find a position of comfort. A firm mattress is best. Try lying flat on your back with pillows under your knees. You can also try lying on your side with your knees bent up towards your chest and a pillow between your knees. Avoid prolonged sitting. This puts more stress on the lower back than standing or walking. During the first two days after injury, apply an ICE PACK to the painful area for 20 minutes every 2-4 hours. This will reduce swelling and pain. HEAT (hot shower, hot bath or heating pad) works well for muscle spasm. You can start with ice, then switch to heat after two days. Some patients feel best alternating ice and heat treatments. Use the one method that feels the best to you. You may use acetaminophen (Tylenol) or ibuprofen (Motrin, Advil) to control pain, unless another pain medicine was prescribed. [NOTE: If you have chronic liver or kidney disease or ever had a stomach ulcer or GI bleeding, talk with your doctor before using these medicines.] Be aware of safe lifting methods and do not lift anything over 15 pounds until all the pain is gone. Follow Up with your doctor or this facility if your symptoms do not start to improve after one week. Physical therapy may be needed. [NOTE: If X-rays were taken, they will be reviewed by a radiologist. You will be notified of any new findings that may affect your care.] Get Prompt Medical Attention if any of the following occur: Pain becomes worse or spreads to your legs Weakness or numbness in one or both legs Loss of bowel or bladder control Numbness in the groin or genital area Naproxen Sodium Oral tablet What is this medicine? NAPROXEN (na PROX en) is a non-steroidal anti-inflammatory drug (NSAID). It is used to reduce swelling and to treat pain. This medicine may be used for dental pain, headache, or painful monthly periods. It is also used for painful joint and muscular problems such as arthritis, tendinitis, bursitis, and gout. How should I use this medicine? Take this medicine by mouth with a glass of water. Follow the directions on the prescription label. Take it with food if your stomach gets upset. Try to not lie down for at least 10 minutes after you take it. Take your medicine at regular intervals. Do not take your medicine more often than directed. Long-term, continuous use may increase the risk of heart attack or stroke. A special MedGuide will be given to you by the pharmacist with each prescription and refill. Be sure to read this information carefully each time. Talk to your business systems lead regarding the use of this medicine in children. Special care may be needed. What side effects may I notice from receiving this medicine? Side effects that you should report to your doctor or health hourly caregiver as soon as possible: black or bloody stools, blood in the urine or vomit blurred vision chest pain difficulty breathing or wheezing nausea or vomiting severe stomach pain skin rash, skin redness, blistering or peeling skin, hives, or itching slurred speech or weakness on one side of the body swelling of eyelids, throat, lips unexplained weight gain or swelling unusually weak or tired yellowing of eyes or skin Side effects that usually do not require medical attention (report to your doctor or health hourly caregiver if they continue or are bothersome): constipation headache heartburn What may interact with this medicine? alcohol aspirin cidofovir diuretics lithium methotrexate other drugs for inflammation like ketorolac or prednisone pemetrexed probenecid warfarin What if I miss a dose? If you miss a dose, take it as soon as you can. If it is almost time for your next dose, take only that dose. Do not take double or extra doses. Where should I keep my medicine? Keep out of the reach of children. Store at room temperature between 15 and 30 degrees C (59 and 86 degrees F). Keep container tightly closed. Throw away any unused medicine after the expiration date. What should I tell my health care provider before I take this medicine? They need to know if you have any of these conditions: asthma cigarette smoker drink more than 3 alcohol containing drinks a day heart disease or circulation problems such as heart failure or leg edema (fluid retention) high blood pressure kidney disease liver disease stomach bleeding or ulcers an unusual or allergic reaction to naproxen, aspirin, other NSAIDs, other medicines, foods, dyes, or preservatives or trying to get breast-feeding What should I watch for while using this medicine? Tell your doctor or health hourly caregiver if your pain does not get better. Talk to your doctor before taking another medicine for pain. Do not treat yourself. This medicine does not prevent heart attack or stroke. In fact, this medicine may increase the chance of a heart attack or stroke. The chance may increase with longer use of this medicine and in people who have heart disease. If you take aspirin to prevent heart attack or stroke, talk with your doctor or health hourly caregiver. Do not take other medicines that contain aspirin, ibuprofen, or naproxen with this medicine. Side effects such as stomach upset, nausea, or ulcers may be more likely to occur. Many medicines available without a prescription should not be taken with this medicine. This medicine can cause ulcers and bleeding in the stomach and intestines at any time during treatment. Do not smoke cigarettes or drink alcohol. These increase irritation to your stomach and can make it more susceptible to damage from this medicine. Ulcers and bleeding can happen without warning symptoms and can cause . You may get drowsy or dizzy. Do not drive, use machinery, or do anything that needs mental alertness until you know how this medicine affects you. Do not stand or sit up quickly, especially if you are an older patient. This reduces the risk of dizzy or fainting spells. This medicine can cause you to bleed more easily. Try to avoid damage to your teeth and gums when you brush or floss your teeth. Cyclobenzaprine Hydrochloride Oral tablet What is this medicine? CYCLOBENZAPRINE (mignon landeros) is a muscle relaxer. It is used to treat muscle pain, spasms, and stiffness. How should I use this medicine? Take this medicine by mouth with a glass of water. Follow the directions on the prescription label. If this medicine upsets your stomach, take it with food or milk. Take your medicine at regular intervals. Do not take it more often than directed. Talk to your business systems lead regarding the use of this medicine in children. Special care may be needed. What side effects may I notice from receiving this medicine? Side effects that you should report to your doctor or health hourly caregiver as soon as possible: allergic reactions like skin rash, itching or hives, swelling of the face, lips, or tongue chest pain fast heartbeat hallucinations seizures vomiting Side effects that usually do not require medical attention (report to your doctor or health hourly caregiver if they continue or are bothersome): headache What may interact with this medicine? Do not take this medicine with any of the following medications: cisapride droperidol flecainide grepafloxacin halofantrine levomethadyl MAOIs like Carbex, Eldepryl, Marplan, Nardil, and Parnate nilotinib pimozide probucol sertindole This medicine may also interact with the following medications: abarelix alcohol contrast dyes dolasetron guanethidine medicines for cancer medicines for depression, anxiety, or psychotic disturbances medicines to treat an irregular heartbeat medicines used for sleep or numbness during surgery or procedure methadone octreotide ondansetron palonosetron phenothiazines like chlorpromazine, mesoridazine, prochlorperazine, thioridazine some medicines for infection like alfuzosin, chloroquine, clarithromycin, levofloxacin, mefloquine, pentamidine, troleandomycin tramadol vardenafil What if I miss a dose? If you miss a dose, take it as soon as you can. If it is almost time for your next dose, take only that dose. Do not take double or extra doses. Where should I keep my medicine? Keep out of the reach of children. Store at room temperature between 15 and 30 degrees C (59 and 86 degrees F). Keep container tightly closed. Throw away any unused medicine after the expiration date. What should I tell my health care provider before I take this medicine? They need to know if you have any of these conditions: heart disease, irregular heartbeat, or previous heart attack liver disease thyroid problem an unusual or allergic reaction to cyclobenzaprine, tricyclic antidepressants, lactose, other medicines, foods, dyes, or preservatives or trying to get breast-feeding What should I watch for while using this medicine? Check with your doctor or health hourly caregiver if your condition does not improve within 1 to 3 weeks. You may get drowsy or dizzy when you first start taking the medicine or change doses. Do not drive, use machinery, or do anything that may be dangerous until you know how the medicine affects you. Stand or sit up slowly. Your mouth may get dry. Drinking water, chewing sugarless gum, or sucking on hard candy may help. You have been given the following additional information: Neck Pain, No Trauma Back Pain (Acute Or Chronic) Naproxen Sodium Oral tablet Cyclobenzaprine Hydrochloride Oral tablet (Electronically signed by Karla Younger A.R.N.P. 03/22/2016 21:49)
== END 2016-03-22 21:10 | disposition home or self-care (01) ==
LOC: ED SRH 20:06
DX: M54.2 Cervicalgia (principal); M54.6 Pain in thoracic spine; Z88.0 Allergy status to penicillin